=== PATIENT | female | born 1995 | race Caucasian/White ===

== ENCOUNTER 2017-10-27 | Emergency (ER) | payer MEDICAID ==
[~2017-10-27] VITALS: Ht 170.2 cm; Wt 62.5 kg
[~2017-10-27] MED LIST: ANTIVERT 25MG25 MG PO; CLEOCIN HC150 MG/CAP PO; MOTRIN 600600 MG/TAB PO; NO HOME MEDICATIONS; NORCO 325 MG-7.1 TAB PO; PRENATAL1 TA1 PO; PROCARDIA XL 3030 MG PO; TUMS500 MG; TYLENOL 325MG325 MG; ZOLOFT 50MG50 MG PO
[2017-10-27 00:06] VITALS: BP 135/81; TEMP 98.4
[2017-10-27 01:05] LABS: BASO # 0.1 (0.0-0.2); EOS # 0.1 (0.0-0.7); EOS % 1.4 % (0-4.0); GRAN # 4.1 (1.4-6.5); HEMATOCRIT 40.2 % (37.0-47.0); HEMOGLOBIN 13.8 g/dl (12.5-16.0); LYMPH # 3.2 (1.2-3.4); LYMPH % 38.8 % (20.0-51.0); MEAN CELL VOLUME 83 fl (80.0-100.0); MEAN CORPUSCULAR HEMOGLOBIN 28 pg (27.0-31.0); MEAN CORPUSCULAR HGB CONC 34 g/dl (33.0-37.0); MEAN PLATELET VOLUME 10.5 fl (7.4-10.4); MONO # 0.7 (0.1-0.6); MONO % 8.3 % (1.7-9.3); PLATELET COUNT 317 K/mm3 (130-400); RED BLOOD COUNT 4.86 M/mm3 (4.10-5.30); REDCELL DISTRIBUTION WIDTH-CV 13.5 % (11.5-14.5)
[2017-10-27 01:20] LABS: BILIRUBIN,TOTAL 0.3 mg/dL (0.0-1.0); CALCIUM 8.9 mg/dL (8.4-10.2); CREATININE, serum 0.61 mg/dL (0.52-1.25); POTASSIUM 3.3 mmol/L (3.4-5.0)
[2017-10-27 02:38] VITALS: PULSE 89
== END 2017-10-27 02:50 | disposition home or self-care (01) ==
LOC: COL.ER
PROVIDERS: Physician Assistant
DX: O26.891 Other specified pregnancy related conditions, first trimester (principal); R10.2 Pelvic and perineal pain; Z98.890 Other specified postprocedural states

== ENCOUNTER 2017-11-25 22:53 | Emergency (ER) | payer MEDICAID ==
[~2017-11-25] VITALS: Ht 170.2 cm; Wt 61.4 kg
[2017-11-25 22:59] VITALS: BP 115/78; TEMP 98.5
[2017-11-25 23:29] LABS: COLLECTION METHOD CLEAN CATCH
[2017-11-25 23:35] LABS: MUCOUS Present /lpf; PH 6 (5-8); SQUAMOUS EPITHELIAL 0-2 /hpf; URINE APPEARANCE Clear; URINE BACTERIA None Seen /hpf; URINE BILIRUBIN Negative (NEGATIVE); URINE BLOOD Negative (NEGATIVE); URINE COLOR Yellow; URINE GLUCOSE Negative (NEGATIVE); URINE KETONE Negative (NEGATIVE); URINE LEUKOCYTE ESTERASE Negative (NEGATIVE); URINE NITRATE Negative (NEGATIVE); URINE PROTEIN(semi-quant) Negative (NEGATIVE); URINE RBC 0-2 /hpf
[2017-11-26 03:10] VITALS: PULSE 65
== END 2017-11-26 03:10 | disposition home or self-care (01) ==
LOC: COL.ER 22:53
PROVIDERS: Emergency Medicine
DX: O26.891 Other specified pregnancy related conditions, first trimester (principal); M54.5 Low back pain; O99.331 Smoking (tobacco) complicating pregnancy, first trimester; Z79.899 Other long term (current) drug therapy; Z3A.09 9 weeks gestation of pregnancy

== ENCOUNTER 2019-09-18 07:31 | Outpatient (CLI) | payer MEDICAID ==
[2019-09-18 07:52] VITALS: BP 107/76; PULSE 72; TEMP 98.1
[2019-09-18 08:05] LABS: HEMATOCRIT 39.8 % (37.0-47.0); HEMOGLOBIN 13.4 g/dl (12.5-16.0); MEAN CELL VOLUME 86 fl (80.0-100.0); MEAN CORPUSCULAR HEMOGLOBIN 29 pg (27.0-31.0); MEAN CORPUSCULAR HGB CONC 34 g/dl (33.0-37.0); MEAN PLATELET VOLUME 10.4 fl (7.4-10.4); PLATELET COUNT 267 K/mm3 (130-400); RED BLOOD COUNT 4.62 M/mm3 (4.10-5.30); REDCELL DISTRIBUTION WIDTH-CV 13.2 % (11.5-14.5)
[2019-09-18 08:15] LABS: ALBUMIN 3.9 gm/dL (3.5-5.0); BILIRUBIN,TOTAL 0.5 mg/dL (0.0-1.0); CALCIUM 9.1 mg/dL (8.4-10.2); CREATININE, serum 0.6 (0.52-1.25); POTASSIUM 3.7 mmol/L (3.4-5.0); TOTAL PROTEIN 6.7 gm/dL (6.4-8.2)
[2019-09-18] MEDS ORDERED: TOPROL XL 25MG25 MG PO (08:27)
--- NOTE | 2019-09-18 09:53 | NUR ---
PT TOLERATED LOOP INSERTION WELL. SHE VERBALIZES UNDERSTANDING OF DC AND F/U INSTRUCTIONS. INSERTION SITE COVERED WITH CLEAN DRY AND INTACT DRESSING. PT IS AMBULATORY TO EXIT WITH STEADY GAIT.
== END 2019-09-18 10:00 | disposition home or self-care (01) ==
LOC: COL.CAR 07:31
PROVIDERS: Internal Medicine Adult Congenital Heart Disease
DX: R55 Syncope and collapse (principal); Z88.5 Allergy status to narcotic agent; Z91.040 Latex allergy status; Z88.8 Allergy status to other drugs, medicaments and biological substances

== ENCOUNTER 2019-10-12 22:13 | Emergency (ER) | payer MEDICAID ==
[~2019-10-12] VITALS: Ht 170.2 cm; Wt 72.7 kg
[~2019-10-12 22:13] MED LIST changes: +TOPROL XL 25MG25 MG PO
[2019-10-12 22:32] VITALS: BP 117/73; TEMP 98.1
[2019-10-12 23:37] VITALS: PULSE 73
== END 2019-10-12 23:36 | disposition home or self-care (01) ==
LOC: COL.ER 22:13
DX: S90.31XA Contusion of right foot, initial encounter (principal); Z88.5 Allergy status to narcotic agent; W20.8XXA Other cause of strike by thrown, projected or falling object, initial encounter; Y92.59 Other trade areas as the place of occurrence of the external cause

== ENCOUNTER 2019-12-20 02:23 | Emergency (ER) | payer MEDICAID ==
[~2019-12-20] VITALS: Ht 170.2 cm; Wt 71.8 kg
[2019-12-20 03:08] LABS: COLLECTION METHOD CLEAN CATCH
[2019-12-20 03:13] LABS: MUCOUS Present /lpf; PH 6 (5-8); SQUAMOUS EPITHELIAL 0-2 /hpf; URINE APPEARANCE Clear; URINE BACTERIA None Seen /hpf; URINE BILIRUBIN Negative (NEGATIVE); URINE BLOOD Negative (NEGATIVE); URINE COLOR Yellow; URINE GLUCOSE Negative (NEGATIVE); URINE KETONE Negative (NEGATIVE); URINE LEUKOCYTE ESTERASE Negative (NEGATIVE); URINE NITRATE Negative (NEGATIVE); URINE PROTEIN(semi-quant) Negative (NEGATIVE); URINE RBC 0-2 /hpf
[2019-12-20] MEDS ORDERED: FLAGYL500 MG PO (03:36)
[2019-12-20] MEDS ORDERED: DIFLUCAN150 MG PO (03:36)
[2019-12-20 03:57] VITALS: BP 122/70; PULSE 62; TEMP 97.5
[2019-12-20] MEDS ORDERED: ZITHROMAX 250M250 MG PO (05:15)
== END 2019-12-20 03:57 | disposition home or self-care (01) ==
LOC: COL.ER 02:23
PROVIDERS: Emergency Medicine
DX: B37.3 Candidiasis of vulva and vagina (principal); N76.0 Acute vaginitis; B96.89 Other specified bacterial agents as the cause of diseases classified elsewhere; Z32.02 Encounter for pregnancy test, result negative; Z88.5 Allergy status to narcotic agent

== ENCOUNTER 2020-03-18 23:06 | Emergency (ER) | payer MEDICAID ==
[~2020-03-18] VITALS: Ht 170.2 cm; Wt 72.7 kg
[~2020-03-18 23:06] MED LIST changes: +DIFLUCAN150 MG PO; +FLAGYL500 MG PO; +ZITHROMAX 250M250 MG PO
[2020-03-18 23:21] VITALS: BP 139/96; TEMP 98.2
[2020-03-18 23:45] LABS: COLLECTION METHOD CLEAN CATCH
[2020-03-18 23:53] LABS: PH 5 (5-8); SQUAMOUS EPITHELIAL 0-2 /hpf; URINE APPEARANCE Clear; URINE BACTERIA None Seen /hpf; URINE BILIRUBIN Negative (NEGATIVE); URINE BLOOD Negative (NEGATIVE); URINE COLOR Yellow; URINE GLUCOSE Negative (NEGATIVE); URINE KETONE Negative (NEGATIVE); URINE LEUKOCYTE ESTERASE Negative (NEGATIVE); URINE NITRATE Negative (NEGATIVE); URINE PROTEIN(semi-quant) Negative (NEGATIVE); URINE RBC 0-2 /hpf; URINE UROBILINOGEN Negative (NEGATIVE)
[2020-03-19] MEDS ORDERED: DOXYCYCLINE 10100 MG PO (00:21)
[2020-03-19] MEDS ORDERED: DIFLUCAN150 MG PO (00:22)
[2020-03-19 00:29] VITALS: PULSE 97
== END 2020-03-19 00:28 | disposition home or self-care (01) ==
LOC: COL.ER 23:06
PROVIDERS: Emergency Medicine
DX: N89.8 Other specified noninflammatory disorders of vagina (principal); Z32.02 Encounter for pregnancy test, result negative; Z88.5 Allergy status to narcotic agent; Z91.040 Latex allergy status
CPT/HCPCS: J0696

== ENCOUNTER 2020-10-10 16:11 | Emergency (ER) | payer MEDICAID ==
[~2020-10-10] VITALS: Ht 170.2 cm; Wt 68.2 kg
[~2020-10-10 16:11] MED LIST changes: +DOXYCYCLINE 10100 MG PO
[2020-10-10 17:09] VITALS: TEMP 99.2
[2020-10-10 19:26] VITALS: BP 120/76; PULSE 96
== END 2020-10-10 21:05 | disposition home or self-care (01) ==
LOC: COL.ER 16:11
DX: U07.1 COVID-19 (principal); B97.4 Respiratory syncytial virus as the cause of diseases classified elsewhere; B37.3 Candidiasis of vulva and vagina; Z87.891 Personal history of nicotine dependence; Z86.16 Personal history of COVID-19

== ENCOUNTER 2020-10-25 17:52 | Emergency (ER) | payer MEDICAID ==
[~2020-10-25] VITALS: Ht 170.2 cm; Wt 70.5 kg
[2020-10-25 17:57] VITALS: TEMP 97.2
[2020-10-25 20:14] VITALS: BP 118/87; PULSE 74
== END 2020-10-25 20:14 | disposition home or self-care (01) ==
LOC: COL.ER 17:52
DX: S63.501A Unspecified sprain of right wrist, initial encounter (principal); S00.93XA Contusion of unspecified part of head, initial encounter; S10.93XA Contusion of unspecified part of neck, initial encounter; S80.01XA Contusion of right knee, initial encounter; S40.012A Contusion of left shoulder, initial encounter; V03.19XA Pedestrian with other conveyance injured in collision with car, pick-up truck or van in traffic accident, initial encounter; Y92.219 Unspecified school as the place of occurrence of the external cause

== ENCOUNTER 2021-02-22 18:08 | Emergency (ER) | payer MEDICAID ==
[~2021-02-22] VITALS: Ht 170.2 cm; Wt 75.5 kg
[2021-02-22 18:35] VITALS: TEMP 98.1
[2021-02-22 19:08] LABS: COLLECTION METHOD CLEAN CATCH
[2021-02-22 19:13] LABS: BASO # 0.1 K/mm3 (0.0-0.2); BASO % 0.8 % (0.0-2.0); EOS # 0.1 K/mm3 (0.0-0.7); EOS % 1.5 % (0.0-4.0); GRAN # 5.5 K/mm3 (1.4-6.5); GRAN % 57.3 % (42.2-75.2); HEMATOCRIT 42.9 % (37.0-47.0); HEMOGLOBIN 14.6 g/dl (12.5-16.0); LYMPH # 3.3 K/mm3 (1.2-3.4); LYMPH % 34.3 % (20.0-51.0); MEAN CELL VOLUME 86 fl (80.0-100.0); MEAN CORPUSCULAR HEMOGLOBIN 29 pg (27-31); MEAN CORPUSCULAR HGB CONC 34 g/dl (33.0-37.0); MEAN PLATELET VOLUME 10.3 fl (7.4-10.4); MONO # 0.6 K/mm3 (0.1-0.6); MONO % 5.8 % (1.7-9.3); PLATELET COUNT 297 K/mm3 (130-400); RED BLOOD COUNT 4.99 M/mm3 (4.10-5.30); REDCELL DISTRIBUTION WIDTH-CV 12.3 % (11.5-14.5)
[2021-02-22 19:15] LABS: PH 8 (5-8); SQUAMOUS EPITHELIAL 0-2 /hpf (0-10); URINE APPEARANCE Clear (CLEAR/HAZY); URINE BACTERIA None Seen /hpf (NONE SEEN); URINE BILIRUBIN Negative (NEGATIVE); URINE BLOOD Negative (NEGATIVE); URINE COLOR Yellow (YELLOW); URINE GLUCOSE Negative (NEGATIVE); URINE KETONE Negative (NEGATIVE); URINE LEUKOCYTE ESTERASE Negative (NEGATIVE); URINE NITRATE Negative (NEGATIVE); URINE PROTEIN(semi-quant) Negative (NEGATIVE); URINE RBC 0-2 /hpf (0-2); URINE UROBILINOGEN Negative (NEGATIVE)
[2021-02-22 19:31] LABS: ALBUMIN 4.2 gm/dL (3.5-5.0); BILIRUBIN,TOTAL 0.3 mg/dL (0.2-1.2); C-REACTIVE PROTEIN 0.2 mg/dL (0.00-0.50); CALCIUM 9.3 mg/dL (8.4-10.2); CREATININE, serum 0.7 mg/dL (0.57-1.11); POTASSIUM 4.3 mmol/L (3.5-4.5); TOTAL PROTEIN 7.4 gm/dL (6.2-8.1)
[2021-02-22 20:30] VITALS: BP 126/79; PULSE 74
== END 2021-02-22 20:30 | disposition home or self-care (01) ==
LOC: COL.ER 18:08
PROVIDERS: Nurse Practitioner Primary Care
DX: R10.30 Lower abdominal pain, unspecified (principal); Z32.02 Encounter for pregnancy test, result negative
CPT/HCPCS: J1885; J2405; J7030

== ENCOUNTER → 2021-03-09 | Outpatient (CLI) | payer MEDICAID | LOC: COL.RAD 07:44 | DX: R10.11 Right upper quadrant pain (principal); R10.84 Generalized abdominal pain ==

== ENCOUNTER 2021-04-26 15:29 | Emergency (ER) | payer MEDICAID ==
[~2021-04-26] VITALS: Ht 170.2 cm; Wt 77.3 kg
[2021-04-26 16:01] VITALS: TEMP 98.4
[2021-04-26 16:45] LABS: COLLECTION METHOD CLEAN CATCH
[2021-04-26 16:49] LABS: MUCOUS Present (NOT PRESENT); PH 8 (5-8); URINE APPEARANCE Hazy (CLEAR/HAZY); URINE BACTERIA None Seen /hpf (NONE SEEN); URINE BILIRUBIN Negative (NEGATIVE); URINE BLOOD Negative (NEGATIVE); URINE COLOR Yellow (YELLOW); URINE GLUCOSE Negative (NEGATIVE); URINE KETONE Negative (NEGATIVE); URINE LEUKOCYTE ESTERASE Negative (NEGATIVE); URINE NITRATE Negative (NEGATIVE); URINE PROTEIN(semi-quant) Negative (NEGATIVE); URINE RBC 0-2 /hpf (0-2); URINE UROBILINOGEN Negative (NEGATIVE)
[2021-04-26] MEDS ORDERED: PHENERGAN25 MG RC (17:37)
[2021-04-26 17:45] VITALS: BP 113/69; PULSE 66
== END 2021-04-26 17:45 | disposition home or self-care (01) ==
LOC: COL.ER 15:29
PROVIDERS: Nurse Practitioner Primary Care
DX: O21.9 Vomiting of pregnancy, unspecified (principal); Z3A.08 8 weeks gestation of pregnancy
CPT/HCPCS: J2550; J7030

== ENCOUNTER 2021-06-13 18:43 | Emergency (ER) | payer MEDICAID ==
[~2021-06-13] VITALS: Ht 170.2 cm; Wt 76.4 kg
[~2021-06-13 18:43] MED LIST changes: +PHENERGAN25 MG RC
[2021-06-13 19:07] VITALS: BP 110/73; PULSE 109; TEMP 98.7
[2021-07-18] MEDS ORDERED: PROMETHAZINE12.5 M5 PO (08:50)
[2021-07-18] MEDS ORDERED: ZOFRAN 4MG T4 MG/TAB PO (08:51)
[2021-07-18] MEDS ORDERED: ZOFRAN ODT4 MG PO (08:52)
[2021-07-18] MEDS ORDERED: [UNRECOGNIZED DRUG - OTHER] PO (08:53)
== END 2021-06-13 21:00 | disposition left against medical advice (07) ==
LOC: COL.ER 18:43
DX: R53.81 Other malaise (principal)

== ENCOUNTER 2021-06-15 12:08 | Emergency (ER) | payer MEDICAID ==
[~2021-06-15] VITALS: Ht 170.2 cm; Wt 76.4 kg
[2021-06-15 12:13] VITALS: TEMP 100.9
[2021-06-15 13:07] LABS: BASO % 0.3 % (0.0-2.0); EOS % 0.2 % (0.0-4.0); GRAN # 5.5 K/mm3 (1.4-6.5); GRAN % 85.9 % (42.2-75.2); HEMATOCRIT 33.9 % (37.0-47.0); HEMOGLOBIN 11.8 g/dl (12.5-16.0); LYMPH # 0.4 K/mm3 (1.2-3.4); LYMPH % 6.4 % (20.0-51.0); MEAN CELL VOLUME 84 fl (80.0-100.0); MEAN CORPUSCULAR HEMOGLOBIN 29 pg (27-31); MEAN CORPUSCULAR HGB CONC 35 g/dl (33.0-37.0); MEAN PLATELET VOLUME 10.5 fl (7.4-10.4); MONO # 0.4 K/mm3 (0.1-0.6); MONO % 6.9 % (1.7-9.3); PLATELET COUNT 210 K/mm3 (130-400); RED BLOOD COUNT 4.06 M/mm3 (4.10-5.30); REDCELL DISTRIBUTION WIDTH-CV 12.8 % (11.5-14.5)
[2021-06-15 13:16] LABS: MONOSCREEN NEGATIVE
[2021-06-15 13:23] LABS: BILIRUBIN,TOTAL 0.3 mg/dL (0.2-1.2); C-REACTIVE PROTEIN 2.71 mg/dL (0.00-0.50); CALCIUM 8.3 mg/dL (8.4-10.2); CREATININE, serum 0.57 mg/dL (0.57-1.11); POTASSIUM 3.2 mmol/L (3.5-4.5); TOTAL PROTEIN 6.1 gm/dL (6.2-8.1)
[2021-06-15 14:26] LABS: COLLECTION METHOD CLEAN CATCH
[2021-06-15 14:33] LABS: MUCOUS Present (NOT PRESENT); PH 6 (5-8); SQUAMOUS EPITHELIAL 0-2 /hpf (0-10); URINE APPEARANCE Clear (CLEAR/HAZY); URINE BACTERIA Rare /hpf (NONE SEEN); URINE BILIRUBIN Negative (NEGATIVE); URINE BLOOD Negative (NEGATIVE); URINE COLOR Yellow (YELLOW); URINE GLUCOSE Negative (NEGATIVE); URINE KETONE 2+ (NEGATIVE); URINE LEUKOCYTE ESTERASE Negative (NEGATIVE); URINE NITRATE Negative (NEGATIVE); URINE PROTEIN(semi-quant) Negative (NEGATIVE); URINE RBC None Seen /hpf (0-2); URINE UROBILINOGEN Negative (NEGATIVE)
[2021-06-15 15:32] VITALS: BP 102/64; PULSE 107
== END 2021-06-15 15:39 | disposition home or self-care (01) ==
LOC: COL.ER 12:08
PROVIDERS: Physician Assistant
DX: O98.512 Other viral diseases complicating pregnancy, second trimester (principal); Z3A.15 15 weeks gestation of pregnancy; Z88.6 Allergy status to analgesic agent; Z91.040 Latex allergy status
CPT/HCPCS: J7030

== ENCOUNTER 2021-06-29 21:03 | Emergency (ER) | payer MEDICAID ==
[~2021-06-29] VITALS: Ht 170.2 cm; Wt 74.5 kg
[2021-06-29 23:11] VITALS: BP 113/73; PULSE 71; TEMP 98.5
[2021-07-18] MEDS ORDERED: PROMETHAZINE12.5 M5 PO (08:50)
[2021-07-18] MEDS ORDERED: ZOFRAN 4MG T4 MG/TAB PO (08:51)
[2021-07-18] MEDS ORDERED: ZOFRAN ODT4 MG PO (08:52)
[2021-07-18] MEDS ORDERED: [UNRECOGNIZED DRUG - OTHER] PO (08:53)
== END 2021-06-29 23:11 | disposition home or self-care (01) ==
LOC: COL.ER 21:03
DX: O21.9 Vomiting of pregnancy, unspecified (principal); Z87.891 Personal history of nicotine dependence; Z28.310 Unvaccinated for COVID-19; Z3A.17 17 weeks gestation of pregnancy; Z91.040 Latex allergy status
CPT/HCPCS: J2550; J7030

== ENCOUNTER 2021-07-04 22:49 | Emergency (ER) | payer MEDICAID ==
[~2021-07-04] VITALS: Ht 170.2 cm; Wt 70.5 kg
[2021-07-04 22:56] VITALS: TEMP 98.4
[2021-07-05 00:27] LABS: COLLECTION METHOD CLEAN CATCH
[2021-07-05 00:32] LABS: MUCOUS Present (NOT PRESENT); PH 6 (5-8); SQUAMOUS EPITHELIAL 0-2 /hpf (0-10); URINE APPEARANCE Clear (CLEAR/HAZY); URINE BACTERIA None Seen /hpf (NONE SEEN); URINE BILIRUBIN Negative (NEGATIVE); URINE BLOOD Negative (NEGATIVE); URINE COLOR Yellow (YELLOW); URINE GLUCOSE Negative (NEGATIVE); URINE KETONE Trace (NEGATIVE); URINE LEUKOCYTE ESTERASE Negative (NEGATIVE); URINE NITRATE Negative (NEGATIVE); URINE PROTEIN(semi-quant) Negative (NEGATIVE); URINE RBC 0-2 /hpf (0-2)
[2021-07-05 00:37] LABS: BASO # 0.1 K/mm3 (0.0-0.2); BASO % 0.3 % (0.0-2.0); EOS # 0.2 K/mm3 (0.0-0.7); EOS % 1.6 % (0.0-4.0); GRAN # 10.9 K/mm3 (1.4-6.5); GRAN % 75.2 % (42.2-75.2); HEMOGLOBIN 12.2 g/dl (12.5-16.0); LYMPH # 2.5 K/mm3 (1.2-3.4); LYMPH % 17.4 % (20.0-51.0); MEAN CELL VOLUME 86 fl (80.0-100.0); MEAN CORPUSCULAR HEMOGLOBIN 30 pg (27-31); MEAN CORPUSCULAR HGB CONC 35 g/dl (33.0-37.0); MEAN PLATELET VOLUME 10.7 fl (7.4-10.4); MONO # 0.7 K/mm3 (0.1-0.6); MONO % 4.9 % (1.7-9.3); PLATELET COUNT 262 K/mm3 (130-400); RED BLOOD COUNT 4.09 M/mm3 (4.10-5.30); REDCELL DISTRIBUTION WIDTH-CV 13.2 % (11.5-14.5)
[2021-07-05 00:46] LABS: ALBUMIN 3.1 gm/dL (3.5-5.0); BILIRUBIN,TOTAL 0.3 mg/dL (0.2-1.2); CALCIUM 8.8 mg/dL (8.4-10.2); CREATININE, serum 0.54 mg/dL (0.57-1.11); POTASSIUM 3.6 mmol/L (3.5-4.5); TOTAL PROTEIN 6.3 gm/dL (6.2-8.1)
[2021-07-05 01:30] VITALS: BP 123/80; PULSE 92
[2021-07-18] MEDS ORDERED: PROMETHAZINE12.5 M5 PO (08:50)
[2021-07-18] MEDS ORDERED: ZOFRAN 4MG T4 MG/TAB PO (08:51)
[2021-07-18] MEDS ORDERED: ZOFRAN ODT4 MG PO (08:52)
[2021-07-18] MEDS ORDERED: [UNRECOGNIZED DRUG - OTHER] PO (08:53)
== END 2021-07-05 01:40 | disposition home or self-care (01) ==
LOC: COL.ER 22:49
PROVIDERS: Physician Assistant
DX: O21.9 Vomiting of pregnancy, unspecified (principal); Z3A.18 18 weeks gestation of pregnancy; Z91.040 Latex allergy status; Z28.310 Unvaccinated for COVID-19
CPT/HCPCS: J2765; J7030

== ENCOUNTER 2021-07-12 20:24 | Emergency (ER) | payer MEDICAID ==
[~2021-07-12] VITALS: Ht 170.2 cm; Wt 76.4 kg
[2021-07-12 20:36] VITALS: TEMP 98.7
[2021-07-12 23:25] VITALS: BP 130/84; PULSE 88
[2021-07-18] MEDS ORDERED: PROMETHAZINE12.5 M5 PO (08:50)
[2021-07-18] MEDS ORDERED: ZOFRAN 4MG T4 MG/TAB PO (08:51)
[2021-07-18] MEDS ORDERED: ZOFRAN ODT4 MG PO (08:52)
[2021-07-18] MEDS ORDERED: [UNRECOGNIZED DRUG - OTHER] PO (08:53)
== END 2021-07-12 23:25 | disposition home or self-care (01) ==
LOC: COL.ER 20:24
DX: O21.9 Vomiting of pregnancy, unspecified (principal); Z3A.19 19 weeks gestation of pregnancy; Z91.040 Latex allergy status; Z28.310 Unvaccinated for COVID-19
CPT/HCPCS: J2550; J7030

== ENCOUNTER 2021-07-23 08:18 | Emergency (ER) | payer MEDICAID ==
[~2021-07-23] VITALS: Ht 154.9 cm; Wt 74.1 kg
[~2021-07-23 08:18] MED LIST changes: +PROMETHAZINE12.5 M5 PO; +ZOFRAN 4MG T4 MG/TAB PO; +ZOFRAN ODT4 MG PO; +[UNRECOGNIZED DRUG - OTHER] PO
[2021-07-23 08:27] VITALS: TEMP 98
[2021-07-23 11:31] VITALS: BP 107/69; PULSE 81
[2021-07-26] MEDS ORDERED: BENADRYL25 M2 PO (10:24)
== END 2021-07-23 11:31 | disposition home or self-care (01) ==
LOC: COL.ER 08:18
DX: R11.10 Vomiting, unspecified (principal); Z95.9 Presence of cardiac and vascular implant and graft, unspecified; Z91.040 Latex allergy status; Z87.891 Personal history of nicotine dependence; Z28.310 Unvaccinated for COVID-19
CPT/HCPCS: J2550; J7120

== ENCOUNTER → 2021-07-26 | Outpatient (RCR) | payer MEDICAID ==
[2021-07-14 15:48] VITALS: BP 116/75; PULSE 94; TEMP 97.9
[2021-07-18 09:06] VITALS: BP 116/73; PULSE 88; TEMP 97.9
--- NOTE | 2021-07-18 10:15 | NUR ---
Pt tolerated IVF without complication, IV removed, pt ambulated out of EU. Pt has new appt.
[2021-07-21 10:34] VITALS: BP 111/73; PULSE 76; TEMP 98.1
[2021-07-22 10:40] VITALS: BP 111/79; PULSE 92; TEMP 98
[~2021-07-26] VITALS: Ht 170.2 cm; Wt 78.0 kg
[~2021-07-26] MED LIST changes: +BENADRYL25 M2 PO
[2021-07-26 11:03] VITALS: BP 120/83; PULSE 92; TEMP 97.6
--- NOTE | 2021-07-26 12:30 | NUR ---
Pt tolerated treatment well today, pt drank sprite without nausea. pt ambulated out of EU. Appt made for next visit.
== END | disposition home or self-care (01) ==
LOC: EUO
DX: Z45.2 Encounter for adjustment and management of vascular access device (principal); O21.0 Mild hyperemesis gravidarum; Z79.899 Other long term (current) drug therapy
CPT/HCPCS: C1751; J2550; J7120

== ENCOUNTER 2021-07-30 21:41 | Outpatient (CLI) | payer MEDICAID ==
[~2021-07-30] VITALS: Ht 170.2 cm; Wt 77.3 kg
--- NOTE | 2021-07-30 21:45 | NUR ---
2145 G6L4 20.5 WEEK GEST TO LR4 WITH C/O HYPEREMESIS AND UNABLE TO KEEP ANYTHING DOWN ALL DAY. STATES HAD A PICC LINE PUT IN LAST SUNDAY AND HAS BEEN COMING TO THE HOSPITAL 2 TIMES A WEEK FOR IV FLUIDS. WAS HERE LAST ON SUNDAY. HAS TAKEN ZOFRAN TODAY WITH NO RESULTS. STATES ALSO HAS HAD SOME PELVIC/PAIN PRESSURE FOR THE LAST FEW DAYS. ALSO STATES HAS A PLACENTA PREVIA. ON EFM FOR A 10 MINUTE STRIP OF BABY. FHT'S BASELINE 152. NO CONTRACTIONS NOTED. EMESIS ON ADM BUT PLEASANT AND VISITING NOW. ASSESSMENT COMPLETED. 2235 DR POTTS NOTIFIED AND ORDERS RECEIVED. 2250 CCUA OBTAINED AND LABS OBTAINED FROM PICC LINE. 2300 D5LR TO PICC LINE PER IV PUMP TO BOLUS. 2320 PHENERGAN 25 MG IN 50 CC NS IVPB PER IV PUMP. 0000 FEELING MUCH BETTER. POPSICLE TAKEN. 0010 DR POTTS NOTIFIED OF LAB RESULTS AND PT FEELING BETTER. 2330 IV FLUIDS INFUSED AND DISCONNECTED. DISMISS INSTRUCTION GIVEN. 2335 HOME WITH INSTRUCTIONS.
[2021-07-30 22:00] VITALS: BP 139/82; PULSE 90; TEMP 98.5
[2021-07-30 22:59] LABS: COLLECTION METHOD CLEAN CATCH
[2021-07-30 23:01] LABS: HEMOGLOBIN 11.1 g/dl (12.5-16.0); MEAN CELL VOLUME 85 fl (80.0-100.0); MEAN CORPUSCULAR HEMOGLOBIN 30 pg (27-31); MEAN CORPUSCULAR HGB CONC 35 g/dl (33.0-37.0); MEAN PLATELET VOLUME 10.6 fl (7.4-10.4); PLATELET COUNT 233 K/mm3 (130-400); RED BLOOD COUNT 3.76 M/mm3 (4.10-5.30); REDCELL DISTRIBUTION WIDTH-CV 13.3 % (11.5-14.5)
[2021-07-30 23:03] LABS: HEMATOCRIT 31.9 % (37.0-47.0)
[2021-07-30 23:06] LABS: MUCOUS Present (NOT PRESENT); PH 6 (5-8); URINE APPEARANCE Hazy (CLEAR/HAZY); URINE BACTERIA None Seen /hpf (NONE SEEN); URINE BILIRUBIN Negative (NEGATIVE); URINE BLOOD Negative (NEGATIVE); URINE COLOR Yellow (YELLOW); URINE GLUCOSE Negative (NEGATIVE); URINE KETONE Negative (NEGATIVE); URINE LEUKOCYTE ESTERASE Negative (NEGATIVE); URINE NITRATE Negative (NEGATIVE); URINE PROTEIN(semi-quant) Negative (NEGATIVE); URINE RBC 0-2 /hpf (0-2); URINE UROBILINOGEN Negative (NEGATIVE); URINE WBC 0-2 /hpf (0-2)
[2021-07-30 23:20] VITALS: BP 109/64; PULSE 74
[2021-07-30 23:23] LABS: ALBUMIN 2.7 gm/dL (3.5-5.0); BILIRUBIN,TOTAL 0.3 mg/dL (0.2-1.2); CALCIUM 9.1 mg/dL (8.4-10.2); CREATININE, serum 0.47 mg/dL (0.57-1.11); POTASSIUM 3.5 mmol/L (3.5-4.5); TOTAL PROTEIN 6.2 gm/dL (6.2-8.1)
== END 2021-07-31 00:35 | disposition home or self-care (01) ==
LOC: LDR 21:41 → LDRO 21:41
PROVIDERS: Obstetrics & Gynecology
DX: O21.0 Mild hyperemesis gravidarum (principal); Z3A.20 20 weeks gestation of pregnancy
CPT/HCPCS: OP; J2550; J7121

== ENCOUNTER 2021-08-13 14:59 | Outpatient (CLI) | payer MEDICAID ==
[~2021-08-13] VITALS: Ht 170.2 cm; Wt 79.5 kg
--- NOTE | 2021-08-13 15:05 | NUR ---
1505- Pt arrives on unit via wheelchair. Complains of cramping and vaginal pressure. Pt has dx of hyperemesis gravidarum, coreen has PICC line and is receiving LR and Phenergan infusion biweekly. Pt states she has thrown up 8 times today. Assessments completed. Pt has significant history of deliveries via C/S x3, see records. 1538- FHR dopplar 155-160, movement heard and felt by this RN. Pt complains of sharp pain with movement.
[2021-08-13 15:30] VITALS: BP 125/84; PULSE 106; TEMP 98.5
[2021-08-13 16:00] VITALS: BP 108/70; PULSE 92
[2021-08-13 16:30] VITALS: BP 123/82; PULSE 100
--- NOTE | 2021-08-13 16:30 | NUR ---
1622- Pt given marker button, instructed to press when feeling cramping, understanding verbalized. Tested by this RN.
[2021-08-13 17:00] VITALS: BP 113/76; PULSE 96
[2021-08-13 17:03] LABS: COLLECTION METHOD CLEAN CATCH
[2021-08-13 17:08] LABS: PH 7 (5-8); SQUAMOUS EPITHELIAL 0-2 /hpf (0-10); URINE APPEARANCE Clear (CLEAR/HAZY); URINE BACTERIA Rare /hpf (NONE SEEN); URINE BILIRUBIN Negative (NEGATIVE); URINE BLOOD 1+ (NEGATIVE); URINE COLOR Straw (YELLOW); URINE GLUCOSE Negative (NEGATIVE); URINE KETONE Negative (NEGATIVE); URINE LEUKOCYTE ESTERASE Negative (NEGATIVE); URINE NITRATE Negative (NEGATIVE); URINE PROTEIN(semi-quant) Negative (NEGATIVE); URINE UROBILINOGEN Negative (NEGATIVE)
[2021-08-13 17:30] VITALS: BP 112/68; PULSE 83
[2021-08-13 18:00] VITALS: BP 115/66; PULSE 85
--- NOTE | 2021-08-13 18:18 | NUR ---
180- FHR dopplar 155-160bpm. Pt states cramping has spaced out significantly after IVF. 181- TOCO off. PICC line flushed with NS. Discharge paperwork given and explained. 1817- Pt ambulates off unit in stable condition.
== END 2021-08-13 18:18 | disposition home or self-care (01) ==
LOC: LDRO 14:59 → LDR 15:05 → LDRO 18:18
PROVIDERS: Obstetrics & Gynecology
DX: O62.9 Abnormality of forces of labor, unspecified (principal); Z3A.28 28 weeks gestation of pregnancy
CPT/HCPCS: OP; J2550; J7120

== ENCOUNTER → 2021-08-25 | Outpatient (RCR) | payer MEDICAID ==
[2021-07-28 10:58] VITALS: BP 111/73; PULSE 79
[2021-07-28 11:28] VITALS: BP 111/69; PULSE 72; TEMP 97.9
[2021-08-01 10:31] VITALS: BP 113/73; PULSE 77; TEMP 97.9
--- NOTE | 2021-08-01 12:13 | NUR ---
PT TOLERATED TREATMENT WITHOUT COMPLICATION. PT ABLE TO DRINK SPRITE AND REPORTS NO NAUSEA AT THIS TIME. PT HAS APPT FOR AUGUST 04.
[2021-08-04 10:23] VITALS: BP 126/89; PULSE 90; TEMP 98.4
[2021-08-08 09:51] VITALS: BP 124/80; PULSE 71; TEMP 98.3
[2021-08-11 10:28] VITALS: BP 114/78; PULSE 89; TEMP 98.5
[2021-08-15 10:22] VITALS: BP 111/72; PULSE 94; TEMP 98.5
[2021-08-18 10:15] VITALS: BP 108/70; PULSE 84; TEMP 98.5
[2021-08-18 12:00] VITALS: BP 111/68; PULSE 72; TEMP 98.2
[2021-08-22 10:13] VITALS: BP 114/81; PULSE 98; TEMP 98.4
[~2021-08-25] VITALS: Ht 170.2 cm; Wt 79.2 kg
[~2021-08-25] MED LIST changes: +ASPIRIN E.C. 8181 MG PO
[2021-08-25 10:07] VITALS: BP 118/75; PULSE 88; TEMP 98.2
== END | disposition still patient (30) ==
LOC: EUO
DX: O21.0 Mild hyperemesis gravidarum (principal)
CPT/HCPCS: J2550; J7120

== ENCOUNTER 2021-09-10 17:08 | Emergency (ER) | payer MEDICAID ==
[~2021-09-10] VITALS: Ht 170.2 cm; Wt 79.5 kg
[2021-09-10 17:15] VITALS: TEMP 97.6
--- NOTE | 2021-09-10 17:28 | NUR ---
1728 - PATIENT REPORTS NO LEAKING OF FLUID OR BLOODY SHOW. PATIENT REPORTS INTERMITTENT CONTRACTIONS. PATIENT CAME TO ED FOR EXCESSIVE VOMITING X 2DAYS. PATIENT REPORTS GOOD MOVEMENT. 1730 - PATIENT PLACED ON EFM FOR MONITORING. CARE ONGOING.
[2021-09-10 18:38] VITALS: BP 125/72; PULSE 89
== END 2021-09-10 18:38 | disposition home or self-care (01) ==
LOC: COL.ER 17:08
DX: O21.0 Mild hyperemesis gravidarum (principal); Z91.040 Latex allergy status; Z3A.27 27 weeks gestation of pregnancy; Z28.310 Unvaccinated for COVID-19
CPT/HCPCS: J2550; J7030

== ENCOUNTER 2021-09-13 23:23 | Outpatient (CLI) | payer MEDICAID ==
[~2021-09-13] VITALS: Ht 170.2 cm; Wt 80.0 kg
--- NOTE | 2021-09-13 23:35 | NUR ---
To unit via wheelchair, accompanied by spouse and 2 small children. orineted to room,monitor, plan of care. Informed pt and spouse that children could not be on Labor and Delivery unit, that would have to take them out. pt states "that's what we thought" assists pt to bathroom. Pt reports "I'm really dizzy and nauseated" Assisted to bed by . Placed on monitor. takes children home.
[2021-09-13 23:40] VITALS: BP 138/84; PULSE 95; TEMP 98.7
[2021-09-14 00:25] VITALS: BP 125/71; PULSE 96
--- NOTE | 2021-09-14 00:40 | NUR ---
Pt with PICC line to R upper forearm. Flushes easily, labs obtained. flushed. 0050 LR started to R PICC line site, running @ 600mls/hr, 12.5 mg phenergan to secondary IV pump port to infuse over 20 min concurretnly with LR.
[2021-09-14 00:51] LABS: BASO # 0.1 K/mm3 (0.0-0.2); BASO % 0.4 % (0.0-2.0); EOS # 0.1 K/mm3 (0.0-0.7); EOS % 1.1 % (0.0-4.0); GRAN # 8.2 K/mm3 (1.4-6.5); LYMPH % 17.8 % (20.0-51.0); MEAN CELL VOLUME 84 fl (80.0-100.0); MEAN CORPUSCULAR HGB CONC 34 g/dl (33.0-37.0); MEAN PLATELET VOLUME 10.3 fl (7.4-10.4); MONO # 0.8 K/mm3 (0.1-0.6); MONO % 7.2 % (1.7-9.3); PLATELET COUNT 236 K/mm3 (130-400); RED BLOOD COUNT 3.39 M/mm3 (4.10-5.30); REDCELL DISTRIBUTION WIDTH-CV 13.2 % (11.5-14.5)
[2021-09-14 00:53] LABS: HEMATOCRIT 28.6 % (37.0-47.0); HEMOGLOBIN 9.6 g/dl (12.5-16.0); MEAN CORPUSCULAR HEMOGLOBIN 28 pg (27-31)
[2021-09-14 01:00] VITALS: BP 111/63; PULSE 94; TEMP 98
[2021-09-14 01:09] LABS: ALBUMIN 2.5 gm/dL (3.5-5.0); BILIRUBIN,TOTAL 0.3 mg/dL (0.2-1.2); CALCIUM 8.8 mg/dL (8.4-10.2); CREATININE, serum 0.48 mg/dL (0.57-1.11); POTASSIUM 3.6 mmol/L (3.5-4.5); TOTAL PROTEIN 5.9 gm/dL (6.2-8.1)
[2021-09-14 01:30] VITALS: BP 127/79; PULSE 81
[2021-09-14 02:00] VITALS: BP 115/71; PULSE 81
[2021-09-14 02:30] VITALS: BP 116/59; PULSE 80
--- NOTE | 2021-09-14 02:30 | NUR ---
LR bolus complete. Pt states "I feel so much better. Thanks. I'm ready to go home." IV fluids dc'd, PICC line flushes easily. 0238 Up to bathroom with steady gait.
--- NOTE | 2021-09-14 03:00 | NUR ---
Discharge instructions reviewed with pt. Questions invited and answered. off unit via wheelchair, waiting with car at ER entrance.
== END 2021-09-14 03:00 | disposition home or self-care (01) ==
LOC: LDRO 23:23 → LDR 09-14 00:05 → LDRO 09-14 03:00
PROVIDERS: Student in an Organized Health Care Education/Training Program
DX: O26.893 Other specified pregnancy related conditions, third trimester (principal); R11.0 Nausea; R42 Dizziness and giddiness; Z3A.28 28 weeks gestation of pregnancy
CPT/HCPCS: OP; J2550; J7120

== ENCOUNTER 2021-09-22 00:30 | Emergency (ER) | payer MEDICAID ==
[~2021-09-22] VITALS: Ht 170.2 cm; Wt 80.0 kg
[2021-09-22 00:34] VITALS: TEMP 97.4
[2021-09-22] MEDS ORDERED: DULCOLAX STOOL100 MG PO (01:47)
[2021-09-22 02:10] VITALS: BP 132/78; PULSE 70
== END 2021-09-22 02:10 | disposition home or self-care (01) ==
LOC: COL.ER 00:30
DX: O22.40 Hemorrhoids in pregnancy, unspecified trimester (principal); O99.619 Diseases of the digestive system complicating pregnancy, unspecified trimester; K59.00 Constipation, unspecified; Z91.040 Latex allergy status; Z3A.00 Weeks of gestation of pregnancy not specified; Z28.310 Unvaccinated for COVID-19
CPT/HCPCS: J2405

== ENCOUNTER 2021-09-23 10:00 | Outpatient (RCR) | payer MEDICAID ==
[2021-08-30 10:22] VITALS: BP 100/67; PULSE 81; TEMP 98.9
[2021-09-01 10:10] VITALS: BP 103/67; PULSE 88; TEMP 98.1
[2021-09-05 09:57] VITALS: BP 121/80; PULSE 90; TEMP 98.3
--- NOTE | 2021-09-05 11:15 | NUR ---
Pt ambulates out from dept with steady gait following fluid administration. Nausea well controlled. PICC wrap in place to rt upper arm.
[2021-09-08 10:25] VITALS: BP 117/82; PULSE 107; TEMP 98.5
[2021-09-12 10:20] VITALS: BP 120/80; PULSE 83; TEMP 97
[2021-09-14 15:39] VITALS: BP 116/71; PULSE 106; TEMP 98.6
[2021-09-16 10:18] VITALS: BP 114/74; PULSE 106; TEMP 98.3
[2021-09-19 11:02] VITALS: BP 107/73; PULSE 89; TEMP 98.5
[2021-09-21 10:12] VITALS: BP 108/66; PULSE 95; TEMP 98.3
[~2021-09-23] VITALS: Ht 170.2 cm; Wt 80.3 kg
[~2021-09-23 10:00] MED LIST changes: +DULCOLAX STOOL100 MG PO
[2021-09-23 10:19] VITALS: BP 129/86; PULSE 85; TEMP 98.3
[2021-09-23 10:47] VITALS: BP 136/86; PULSE 85; TEMP 97.8
--- NOTE | 2021-09-23 12:36 | NUR ---
Pt discharged from Eu with observed steady gait,denies further needs.
--- NOTE | 2021-09-26 11:10 | NUR ---
Pt did not show for today's scheduled apt.This nurse called pt and per pt she is in hospital in [place].
== END 2021-09-25 | disposition home or self-care (01) ==
LOC: EUO
DX: O21.0 Mild hyperemesis gravidarum (principal); Z3A.00 Weeks of gestation of pregnancy not specified
CPT/HCPCS: J2550; J3411; J7030; J7120

== ENCOUNTER 2021-09-24 21:25 | Outpatient (CLI) | payer MEDICAID ==
[2021-09-24] VITALS (9 sets, daily range): BP systolic 113–127; BP diastolic 66–79; PULSE 71–108; TEMP 98
[~2021-09-24] VITALS: Ht 170.2 cm; Wt 79.5 kg
--- NOTE | 2021-09-24 22:30 | NUR ---
PATIENT PRESENTS TO OB TRIAGE COMPLAINING OF VAGINAL BLEEDING AND CRAMPING. VSS. FHT REACTIVE AND REASSURING WITH UTERINE IRRITABILITY NOTED THAT PALPATES MODERATE. NO VISIBLE BLEEDING NOTED AT THIS TIME. PATIENT STATES SHE HAS BEEN VOMITING ALL DAY AND HAS NOT BEEN ABLE TO EAT SINCE SUNDAY. AT 2029 PATIENT SAYS SHE STARTED CRAMPING AND THEN NOTED VAGINAL BLEEDING AT 2130 WHEN USING THE BATHROOM. PATIENT DENIES LOF AND DFM AT THIS TIME. DR. CONNORS NOTIFIED OF PATIENT STATUS AND ORDERS RECEIVED FOR LAB WORK, IVF, BETAMETHASONE 12MG INJECTION. AND 25MG IV PHENERGAN. MONITORING TO BE PERFORMED OVER NIGHT. WILL CONTINUE TO MONITOR AND UPDATE PROVIDER ON PATIENT STATUS.
[2021-09-24 22:52] LABS: BASO % 0.4 % (0.0-2.0); EOS # 0.1 K/mm3 (0.0-0.7); GRAN % 73.1 % (42.2-75.2); LYMPH # 1.8 K/mm3 (1.2-3.4); LYMPH % 18.3 % (20.0-51.0); MEAN CELL VOLUME 82 fl (80.0-100.0); MEAN CORPUSCULAR HGB CONC 34 g/dl (33.0-37.0); MEAN PLATELET VOLUME 10.7 fl (7.4-10.4); MONO # 0.7 K/mm3 (0.1-0.6); MONO % 6.7 % (1.7-9.3); PLATELET COUNT 233 K/mm3 (130-400); RED BLOOD COUNT 3.39 M/mm3 (4.10-5.30); REDCELL DISTRIBUTION WIDTH-CV 13.1 % (11.5-14.5)
[2021-09-24 22:54] LABS: HEMATOCRIT 27.8 % (37.0-47.0); HEMOGLOBIN 9.4 g/dl (12.5-16.0); MEAN CORPUSCULAR HEMOGLOBIN 28 pg (27-31)
[2021-09-24 23:12] LABS: ALBUMIN 2.5 gm/dL (3.5-5.0); BILIRUBIN,TOTAL 0.3 mg/dL (0.2-1.2); CALCIUM 8.9 mg/dL (8.4-10.2); CREATININE, serum 0.47 mg/dL (0.57-1.11)
[2021-09-24 23:49] LABS: COLLECTION METHOD CLEAN CATCH
[2021-09-24 23:55] LABS: MUCOUS Present (NOT PRESENT); PH 8 (5-8); SQUAMOUS EPITHELIAL 0-2 /hpf (0-10); URINE APPEARANCE Clear (CLEAR/HAZY); URINE BACTERIA None Seen /hpf (NONE SEEN); URINE BLOOD Negative (NEGATIVE); URINE COLOR Straw (YELLOW); URINE GLUCOSE Negative (NEGATIVE); URINE KETONE Negative (NEGATIVE); URINE NITRATE Negative (NEGATIVE); URINE PROTEIN(semi-quant) Negative (NEGATIVE); URINE RBC 0-2 /hpf (0-2); URINE UROBILINOGEN Negative (NEGATIVE); URINE WBC 0-2 /hpf (0-2)
[2021-09-25] VITALS (7 sets, daily range): BP systolic 109–126; BP diastolic 55–69; PULSE 67–96; TEMP 97.9–98.2
--- NOTE | 2021-09-25 09:30 | NUR ---
0900 IVF FINISHED. PICC LINE FLUSHED WITH 10 CC NS. WRAPPED WITH SAROJ WRAP PER PATIENT. DR POTTS AT BEDSIDE TO TALK WITH PATIENT AND DISCUSS OPTIONS. ALL DISCHARGE INSTRUCTIONS GIVEN TO PATIENT WITH VERBAL UNDERSTANDING. OFFERD TO GET PATIENT SOMWTHING TO EAT BUT PATIENT DENIES. INSTRUCT PATIENT TO RETURN TONIGHT AROUND 10-11 PM FOR 2ND BETAMETHASONE SHOT. VERBAL UNDERSTANDING.
== END 2021-09-25 09:30 | disposition home or self-care (01) ==
LOC: LDRO 21:25
PROVIDERS: Obstetrics & Gynecology
DX: O62.9 Abnormality of forces of labor, unspecified (principal); Z3A.00 Weeks of gestation of pregnancy not specified
CPT/HCPCS: J0702; J2550; J3480; J7030; J7120

== ENCOUNTER 2021-09-25 22:00 | Outpatient (CLI) | payer MEDICAID ==
[~2021-09-25] VITALS: Ht 170.2 cm; Wt 79.5 kg
--- NOTE | 2021-09-25 22:00 | NUR ---
PATIENT REPORTS TO OBT FROM SECOND DOSE OF BETAMETHASONE, IVF BOLUS, AND IV PHENERGAN. VSS. FHT REACTIVE AND REASSURING WITH IRREGULAR CONTRACTIONS NOTED THAT PALPATE MILD. PATIENT STATES THAT CRAMPING BEGAN AROUND 1400 AND SHORTLY BEFORE ARRIVING ON THE UNIT SHE NOTICED "MUCUSY BLEEDING" WHEN USING THE BATHROOM. NO BLEEDING NOTED AT THIS TIME. DR. POTTS NOTIFIED OF ARRIVAL AND ORDERS RECEIVED TO ADMINISTER MEDICATIONS AND MONITOR BABY AND CRAMPING. PLAN DISCUSSED WITH PATIENT AND VERBALIZED UNDERSTANDING.
[2021-09-25 22:15] VITALS: BP 124/80; PULSE 109; TEMP 98.4
[2021-09-25 22:30] VITALS: BP 114/67; PULSE 96
[2021-09-25 22:45] VITALS: BP 121/70; PULSE 100
[2021-09-25 23:00] VITALS: BP 134/88; PULSE 103
[2021-09-25 23:15] VITALS: BP 126/67; PULSE 103
[2021-09-25 23:45] VITALS: BP 118/61; PULSE 92
--- NOTE | 2021-09-25 23:47 | NUR ---
AT 2347 PATIENT UP TO BATHROOM AND CALLED OUT FOR BRIGHT RED BLEEDING WHEN WIPING. TRICKLING ALSO NOTED INTO THE TOILET UPON STANDING UP. PATIENT RETURNED TO BED AND PLACED BACK ON MONITOR; HEART TRACING REACTIVE AND VSS. DR. POTTS NOTIFIED AND WILL REPORT TO THE BEDSIDE.
[2021-09-26 00:30] VITALS: BP 124/68; PULSE 87
--- NOTE | 2021-09-26 00:30 | NUR ---
0020 - DR. POTTS AT BEDSIDE TO ASSESS PATIENT AND PERFORM SVE; SVE . DISCUSSED POSSIBLE PLAN OF CARE WITH PATIENT AND PATIENT AGREES TO TRANSFER TO [place]. 0030 - ORDERS RECEIVED TO START AMPICILLIN, MAGNESIUM SULFATE, IV FLUIDS. START SECOND PIV AND PINA CATHETER, AND SEND LAB WORK. 0040 - MOLD UNLOADER NOTIFIED OF PATIENT TRANSFER.
[2021-09-26 01:00] VITALS: BP 127/88; PULSE 90
[2021-09-26 01:25] LABS: MEAN CELL VOLUME 83 fl (80.0-100.0); MEAN CORPUSCULAR HGB CONC 33 g/dl (33.0-37.0); MEAN PLATELET VOLUME 10.6 fl (7.4-10.4); PLATELET COUNT 223 K/mm3 (130-400); RED BLOOD COUNT 3.27 M/mm3 (4.10-5.30); REDCELL DISTRIBUTION WIDTH-CV 13.1 % (11.5-14.5)
[2021-09-26 01:26] LABS: HEMOGLOBIN 8.9 g/dl (12.5-16.0); MEAN CORPUSCULAR HEMOGLOBIN 27 pg (27-31)
[2021-09-26 01:30] VITALS: BP 127/73; PULSE 88
[2021-09-26 01:43] LABS: ALBUMIN 2.5 gm/dL (3.5-5.0); BILIRUBIN,TOTAL 0.2 mg/dL (0.2-1.2); CALCIUM 8.8 mg/dL (8.4-10.2); CREATININE, serum 0.46 mg/dL (0.57-1.11); POTASSIUM 3.3 mmol/L (3.5-4.5); TOTAL PROTEIN 5.8 gm/dL (6.2-8.1)
[2021-09-26 02:00] VITALS: BP 120/72; PULSE 91
--- NOTE | 2021-09-26 02:00 | NUR ---
0115 - 18G PIV PLACED IN PATIENT'S LEFT WRIST; CBC, CMP, FIBRINOGEN DRAWN AND SENT TO LAB. 0120 - 16F PINA CATHETER PLACED USING STERILE TECHNIQUE. POSITIVE URINE RETURN. 0140 - PATIENT CONSENTS TO TRANSFER. 0157 - IVF LR, 2G AMPICILLIN, 4GMAGNESIUM SULFATE BOLUS STARTED PER PHYSICIAN ORDERS. 0210 - MAGNESIUM SULFATE BOLUS COMPLETE. MAINTENANCE MAGNESIUM SULFATE STARTED AT 2 G/HR. 0215 - REPORT CALLED TO ACCEPTING FACILTY. AMBULANCE TRANSPORT TEAM AT BEDSIDE 0225 - PATIENT TRANSFERRED OFF THE UNIT IN STRETCHER WITH TRANSPORT TEAM.
[2021-09-26 02:15] VITALS: BP 114/63; PULSE 90
[2021-09-26 02:17] VITALS: BP 121/71; PULSE 87; TEMP 98.1
== END 2021-09-26 02:25 ==
LOC: LDRO 22:00 → LDR 22:22 → LDRO 09-26 02:25
PROVIDERS: Obstetrics & Gynecology
DX: Z34.93 Encounter for supervision of normal pregnancy, unspecified, third trimester (principal); Z3A.29 29 weeks gestation of pregnancy
CPT/HCPCS: OP; J0290; J0702; J2550; J3475; J7120

== ENCOUNTER 2021-11-24 01:30 | Emergency (ER) | payer MEDICAID ==
[~2021-11-24] VITALS: Ht 170.2 cm; Wt 71.8 kg
[2021-11-24] MEDS ORDERED: NORCO 325 MG-51 TAB PO (01:58)
[2021-11-24] MEDS ORDERED: CLEOCIN HCL300 MG PO (01:58)
[2021-11-24 02:21] VITALS: BP 140/89; PULSE 84; TEMP 98.5
== END 2021-11-24 02:21 | disposition home or self-care (01) ==
LOC: COL.ER 01:30
DX: S02.5XXA Fracture of tooth (traumatic), initial encounter for closed fracture (principal); K04.7 Periapical abscess without sinus; Z28.310 Unvaccinated for COVID-19; Z91.040 Latex allergy status; Z88.5 Allergy status to narcotic agent; Z88.0 Allergy status to penicillin; X58.XXXA Exposure to other specified factors, initial encounter

== ENCOUNTER 2023-02-24 21:34 | Emergency (ER) | payer MEDICAID ==
[~2023-02-24] VITALS: Ht 170.2 cm; Wt 52.3 kg
[~2023-02-24 21:34] MED LIST changes: +BACTRIM DS 8001 TAB PO; +CLEOCIN HCL300 MG PO; +NORCO 325 MG-51 TAB PO; +OMNICEF 300MG300 MG PO
[2023-02-24 21:56] VITALS: BP 140/104; TEMP 98.6
[2023-02-24 23:00] VITALS: PULSE 81
== END 2023-02-24 23:11 | disposition home or self-care (01) ==
LOC: COL.ER 21:34
DX: S66.911A Strain of unspecified muscle, fascia and tendon at wrist and hand level, right hand, initial encounter (principal); S66.912A Strain of unspecified muscle, fascia and tendon at wrist and hand level, left hand, initial encounter; Z91.040 Latex allergy status; W18.30XA Fall on same level, unspecified, initial encounter; Y93.21 Activity, ice skating; Y92.330 Ice skating rink (indoor) (outdoor) as the place of occurrence of the external cause

== ENCOUNTER 2023-05-11 07:01 | Day surgery (SDC) | payer MEDICAID ==
[~2023-05-11] VITALS: Ht 170.2 cm; Wt 77.0 kg
[~2023-05-11 07:01] MED LIST changes: +SPRINTEC 35 MCG1 TAB PO
[2023-05-11 07:28] VITALS: BP 131/87; PULSE 74; TEMP 98.2
[2023-05-11 09:27] VITALS: BP 117/77; PULSE 69
--- NOTE | 2023-05-11 09:29 | NUR ---
Please see merge documentation for record of interventions, vitals and medications administered during loop removal and replacement
[2023-05-11] MEDS ORDERED: NS 100 ML IV.SOLN. IR SCH (09:54)
[2023-05-11] MEDS ORDERED: Vancomycin 1 GM VIAL IR SCH (09:55)
[2023-05-11] MEDS ORDERED: fentaNYL 50 MCG/ML 2 ML VIAL IV SCH (09:59)
[2023-05-11] MEDS ORDERED: Midazolam 2 MG/2 ML VIAL IV SCH (10:00)
[2023-05-11] MEDS ORDERED: Water For Inj, Sterile 10 ML VIAL IJ SCH (10:01)
[2023-05-11 10:30] VITALS: BP 126/83; PULSE 64
--- NOTE | 2023-05-11 10:35 | NUR ---
Pt was escorted back to express unit after loop removal and replacement. Pt is pwd with reg and unlabored respirations. Both incisions are covered with sterile gauze and paper tape, dressing is CDI. Pt care transferred to Hanna LEWIS at . Pt did have questions about her old bed side monitor, and about my care link [employer]. Curtis from [employer] was notified and stated with talk with pt while in express unit, to answer her questions.
[2023-05-11 10:45] VITALS: BP 105/77; PULSE 62
[2023-05-11] MEDS ORDERED: CLEOCIN HCL300 MG PO (10:57)
[2023-05-11 11:00] VITALS: BP 106/79; PULSE 60
[2023-05-11 11:15] VITALS: BP 108/78; PULSE 64
--- NOTE | 2023-05-11 11:55 | NUR ---
pt tolerated recovery period well. she was assisted to main lobby via wheelchair and was accompanied by boyfriend. pt vs remained within normal limits and she verbalized understanding of discharge instructions. pt free from acute concerns and complaints at time of discharge.
== END 2023-05-11 11:56 | disposition home or self-care (01) ==
LOC: COL.CAR 07:01
DX: Z45.09 Encounter for adjustment and management of other cardiac device (principal)
CPT/HCPCS: C1764; J2250; J3010; J3370

== ENCOUNTER 2023-05-22 19:29 | Emergency (ER) | payer MEDICAID ==
[~2023-05-22] VITALS: Ht 170.2 cm; Wt 75.0 kg
[2023-05-22 19:46] VITALS: TEMP 98.4
[2023-05-22 20:16] LABS: BASO # 0.1 K/mm3 (0.0-0.2); EOS # 0.1 K/mm3 (0.0-0.7); GRAN # 3.9 K/mm3 (1.4-6.5); GRAN % 49.9 % (42.2-75.2); HEMATOCRIT 41.3 % (37.0-47.0); HEMOGLOBIN 13.8 g/dl (12.5-16.0); LYMPH # 3.3 K/mm3 (1.2-3.4); LYMPH % 41.8 % (20.0-51.0); MEAN CELL VOLUME 86 fl (80.0-100.0); MEAN CORPUSCULAR HEMOGLOBIN 29 pg (27-31); MEAN CORPUSCULAR HGB CONC 33 g/dl (33.0-37.0); MEAN PLATELET VOLUME 10.4 fl (7.4-10.4); MONO # 0.5 K/mm3 (0.1-0.6); PLATELET COUNT 318 K/mm3 (130-400); RED BLOOD COUNT 4.82 M/mm3 (4.10-5.30)
[2023-05-22 20:34] LABS: ALBUMIN 3.9 g/dL (3.5-5.0); BILIRUBIN,TOTAL 0.3 mg/dL (0.2-1.2); CALCIUM 9.1 mg/dL (8.4-10.2); CREATININE, serum 0.66 mg/dL (0.57-1.11); POTASSIUM 3.7 mEq/L (3.5-4.5); TOTAL PROTEIN 7.1 g/dl (6.2-8.1)
[2023-05-22 20:40] LABS: TROPONIN-I 0.012 ng/mL (0.00-0.033)
[2023-05-22] MEDS ORDERED: NS 1,000 ML IV ONE (20:45)
[2023-05-22] MEDS ORDERED: Ondansetron 4 MG/2 ML VIAL IV ONE (20:45)
[2023-05-22 21:40] LABS: COLLECTION METHOD RANDOM VOIDED
[2023-05-22 21:46] LABS: PH 6.5 (5.0-8.5); URINE APPEARANCE CLEAR (CLEAR/HAZY); URINE BLOOD NEGATIVE (NEGATIVE); URINE COLOR YELLOW (YELLOW); URINE GLUCOSE NEGATIVE (NEGATIVE); URINE KETONE NEGATIVE (NEGATIVE); URINE NITRATE NEGATIVE (NEGATIVE); URINE PROTEIN(semi-quant) NEGATIVE (NEGATIVE); URINE UROBILINOGEN 0.2 E.U/dL (0.2-1.0)
[2023-05-22 21:56] LABS: TRICYCLIC ANTIDEPRESS URINE NEGATIVE (NEGATIVE)
[2023-05-22] MEDS ORDERED: NAPROSYN500 MG PO (22:07)
[2023-05-22] MEDS ORDERED: ZOFRAN ODT4 MG PO (22:07)
[2023-05-22 22:25] VITALS: BP 135/84; PULSE 69
[2023-05-22 22:55] LABS: MONOSCREEN NEGATIVE
== END 2023-05-22 22:25 | disposition home or self-care (01) ==
LOC: COL.ER 19:29
PROVIDERS: Emergency Medicine; Nurse Practitioner
DX: R55 Syncope and collapse (principal); R00.2 Palpitations; H53.8 Other visual disturbances; R11.0 Nausea; Z91.040 Latex allergy status
CPT/HCPCS: J2405; J7030

== ENCOUNTER 2023-06-04 21:29 | Emergency (ER) | payer MEDICAID ==
[~2023-06-04] VITALS: Ht 170.2 cm; Wt 74.5 kg
[~2023-06-04 21:29] MED LIST changes: +NAPROSYN500 MG PO
[2023-06-04 21:41] VITALS: TEMP 98.6
[2023-06-04 22:04] LABS: COLLECTION METHOD CLEAN CATCH
[2023-06-04 22:14] LABS: URINE APPEARANCE CLOUDY (CLEAR/HAZY); URINE BLOOD 2+ (NEGATIVE); URINE COLOR YELLOW (YELLOW); URINE GLUCOSE NEGATIVE (NEGATIVE); URINE KETONE TRACE (NEGATIVE); URINE NITRATE NEGATIVE (NEGATIVE); URINE PROTEIN(semi-quant) 1+ (NEGATIVE)
[2023-06-04] MEDS ORDERED: NS 1,000 ML IV ONE (22:15)
[2023-06-04] MEDS ORDERED: Morphine 4 MG/ML VIAL IV ONE (22:15)
[2023-06-04] MEDS ORDERED: Ondansetron 4 MG/2 ML VIAL IV ONE (22:15)
[2023-06-04 22:28] LABS: BASO # 0.1 K/mm3 (0.0-0.2); BASO % 0.7 % (0.0-2.0); EOS # 0.1 K/mm3 (0.0-0.7); EOS % 0.9 % (0.0-4.0); GRAN # 4.7 K/mm3 (1.4-6.5); GRAN % 53.3 % (42.2-75.2); HEMATOCRIT 40.4 % (37.0-47.0); HEMOGLOBIN 13.4 g/dl (12.5-16.0); LYMPH # 3.4 K/mm3 (1.2-3.4); LYMPH % 38.5 % (20.0-51.0); MEAN CELL VOLUME 86 fl (80.0-100.0); MEAN CORPUSCULAR HEMOGLOBIN 29 pg (27-31); MEAN CORPUSCULAR HGB CONC 33 g/dl (33.0-37.0); MONO # 0.6 K/mm3 (0.1-0.6); MONO % 6.5 % (1.7-9.3); PLATELET COUNT 305 K/mm3 (130-400); RED BLOOD COUNT 4.69 M/mm3 (4.10-5.30); REDCELL DISTRIBUTION WIDTH-CV 13.2 % (11.5-14.5)
[2023-06-04 22:45] LABS: BILIRUBIN,TOTAL 0.3 mg/dL (0.2-1.2); CALCIUM 9.1 mg/dL (8.4-10.2); CREATININE, serum 0.7 mg/dL (0.57-1.11); POTASSIUM 3.5 mEq/L (3.5-4.5); TOTAL PROTEIN 6.8 g/dl (6.2-8.1)
[2023-06-04] MEDS ORDERED: NS 100 ML IV SCH (22:49)
[2023-06-04] MEDS ORDERED: Iohexol 300 - 100 ML VIAL IV ONE (22:49)
[2023-06-04] MEDS ORDERED: NORCO 325 MG-51 TAB PO (23:40)
[2023-06-04] MEDS ORDERED: ZOFRAN ODT4 MG PO (23:40)
[2023-06-04] MEDS ORDERED: CIPRO 500MG TA500 MG PO (23:40)
[2023-06-04] MEDS ORDERED: droPERidol 2.5 MG/ML 2 ML VIAL IV ONE (23:45)
[2023-06-05 00:14] VITALS: BP 118/90; PULSE 72
== END 2023-06-05 00:20 | disposition home or self-care (01) ==
LOC: COL.ER 21:29
PROVIDERS: Personal Emergency Response Attendant
DX: N12 Tubulo-interstitial nephritis, not specified as acute or chronic (principal); N32.89 Other specified disorders of bladder; Z88.0 Allergy status to penicillin; Z88.1 Allergy status to other antibiotic agents; Z88.6 Allergy status to analgesic agent; Z91.040 Latex allergy status
CPT/HCPCS: J1790; J1956; J2270; J2405; J7030; Q9967

== ENCOUNTER → 2023-09-10 | Outpatient (CLI) | payer MEDICAID ==
[~2023-09-10] MED LIST changes: +CIPRO 500MG TA500 MG PO
== END ==
LOC: COL.RAD 07:51
DX: K29.00 Acute gastritis without bleeding (principal)
CPT/HCPCS: A9541-JZ

== ENCOUNTER 2023-09-17 15:40 | Emergency (ER) | payer MEDICAID ==
[~2023-09-17] VITALS: Ht 170.2 cm; Wt 65.9 kg
[2023-09-17 15:48] VITALS: TEMP 98.1
[2023-09-17] MEDS ORDERED: LORazepam 2 MG/ML 1 ML VIAL IM SCH (15:59)
[2023-09-17] MEDS ORDERED: Dicyclomine 10 MG/ML 2 ML VIAL IM ONE (16:30)
[2023-09-17 17:09] LABS: BASO # 0.1 K/mm3 (0.0-0.2); BASO % 0.7 % (0.0-2.0); EOS % 0.4 % (0.0-4.0); GRAN # 5.7 K/mm3 (1.4-6.5); GRAN % 68.9 % (42.2-75.2); HEMATOCRIT 41.1 % (37.0-47.0); HEMOGLOBIN 13.6 g/dl (12.5-16.0); LYMPH % 24.4 % (20.0-51.0); MEAN CELL VOLUME 87 fl (80.0-100.0); MEAN CORPUSCULAR HEMOGLOBIN 29 pg (27-31); MEAN CORPUSCULAR HGB CONC 33 g/dl (33.0-37.0); MEAN PLATELET VOLUME 10.5 fl (7.4-10.4); MONO # 0.4 K/mm3 (0.1-0.6); MONO % 5.4 % (1.7-9.3); PLATELET COUNT 254 K/mm3 (130-400); RED BLOOD COUNT 4.75 M/mm3 (4.10-5.30); REDCELL DISTRIBUTION WIDTH-CV 12.9 % (11.5-14.5)
[2023-09-17 17:34] LABS: COLLECTION METHOD CLEAN CATCH
[2023-09-17] MEDS ORDERED: Iohexol 300 - 100 ML VIAL IV ONE (17:34)
[2023-09-17] MEDS ORDERED: NS 100 ML IV SCH (17:35)
[2023-09-17 17:37] LABS: BILIRUBIN,TOTAL 0.4 mg/dL (0.2-1.2); CALCIUM 9.5 mg/dL (8.4-10.2); CREATININE, serum 0.75 mg/dL (0.57-1.11); POTASSIUM 3.2 mEq/L (3.5-4.5); TOTAL PROTEIN 6.8 g/dl (6.2-8.1)
[2023-09-17 17:42] LABS: PH 5.5 (5.0-8.5); URINE APPEARANCE CLEAR (CLEAR/HAZY); URINE BLOOD NEGATIVE (NEGATIVE); URINE COLOR YELLOW (YELLOW); URINE GLUCOSE NEGATIVE (NEGATIVE); URINE KETONE 1+ (NEGATIVE); URINE NITRATE NEGATIVE (NEGATIVE); URINE PROTEIN(semi-quant) TRACE (NEGATIVE)
[2023-09-17 17:57] LABS: TSH w REFLEX 0.538 uIU/mL (0.350-4.940)
[2023-09-17] MEDS ORDERED: NS 1,000 ML IV ONE (18:15)
[2023-09-17] MEDS ORDERED: Ondansetron 4 MG/2 ML VIAL IV ONE (19:30)
[2023-09-17] MEDS ORDERED: fentaNYL 50 MCG/ML 2 ML VIAL IV ONE (19:45)
[2023-09-17] MEDS ORDERED: BENTYL 20MG20 MG/TAB PO ×2 (20:32→20:37)
[2023-09-17 20:52] VITALS: BP 119/83; PULSE 97
== END 2023-09-17 20:47 | disposition home or self-care (01) ==
LOC: COL.ER 15:40
PROVIDERS: Family Medicine
DX: R10.9 Unspecified abdominal pain (principal); R11.2 Nausea with vomiting, unspecified; Z91.040 Latex allergy status; Z88.1 Allergy status to other antibiotic agents
CPT/HCPCS: J0500; J2060; J2405; J3010; J7030; Q9967

== ENCOUNTER 2023-10-08 13:30 | Inpatient (IN) | payer MEDICAID ==
[~2023-10-08] VITALS: Ht 170.2 cm; Wt 64.5 kg
[~2023-10-08 13:30] MED LIST changes: +BENTYL 20MG20 MG/TAB PO
[2023-10-24] VITALS (10 sets, daily range): BP systolic 110–133; BP diastolic 64–81; PULSE 52–81; TEMP 97–98.1
[2023-10-24] MEDS ORDERED: LR 1,000 ML IV SCH (05:00)
[2023-10-24] MEDS ORDERED: BUSPAR DIVIDOSE15 MG PO (13:13)
[2023-10-24] MEDS ORDERED: PEPCID 20MG TAB20 MG PO (13:14)
[2023-10-24] MEDS ORDERED: PHENERGAN 25 TA25 MG PO (13:15)
[2023-10-24] MEDS ORDERED: fentaNYL 50 MCG/ML 2 ML VIAL ONE ×2 (13:24→15:51)
[2023-10-24] MEDS ORDERED: Ondansetron 4 MG/2 ML VIAL ONE (13:24)
[2023-10-24] MEDS ORDERED: dexAMETHasone 10 MG/ML VIAL ONE (13:24)
[2023-10-24] MEDS ORDERED: Lidocaine PF 2% (20 MG/ML) 5 ML VIAL ONE (13:24)
[2023-10-24] MEDS ORDERED: Rocuronium 50 MG/5 ML Multi-Dose VIAL ONE (13:24)
[2023-10-24] MEDS ORDERED: Succinylcholine PF 200 MG/10 ML SYRINGE IV ONE (13:27)
[2023-10-24 13:32] LABS: BASO # 0.1 K/mm3 (0.0-0.2); BASO % 0.7 % (0.0-2.0); EOS # 0.1 K/mm3 (0.0-0.7); EOS % 0.9 % (0.0-4.0); GRAN # 5.4 K/mm3 (1.4-6.5); GRAN % 62.6 % (42.2-75.2); HEMATOCRIT 39.6 % (37.0-47.0); HEMOGLOBIN 13.1 g/dl (12.5-16.0); LYMPH # 2.6 K/mm3 (1.2-3.4); MEAN CELL VOLUME 88 fl (80.0-100.0); MEAN CORPUSCULAR HEMOGLOBIN 29 pg (27-31); MEAN CORPUSCULAR HGB CONC 33 g/dl (33.0-37.0); MEAN PLATELET VOLUME 10.2 fl (7.4-10.4); MONO # 0.5 K/mm3 (0.1-0.6); MONO % 5.7 % (1.7-9.3); PLATELET COUNT 293 K/mm3 (130-400); RED BLOOD COUNT 4.51 M/mm3 (4.10-5.30)
[2023-10-24 13:50] LABS: ALBUMIN 3.9 g/dL (3.5-5.0); BILIRUBIN,TOTAL 0.6 mg/dL (0.2-1.2); CALCIUM 9.3 mg/dL (8.4-10.2); CREATININE, serum 0.66 mg/dL (0.57-1.11); POTASSIUM 3.7 mEq/L (3.5-4.5); TOTAL PROTEIN 6.7 g/dl (6.2-8.1)
[2023-10-24 14:47] LABS: MAGNESIUM 1.7 mg/dL (1.6-2.6); PHOSPHOROUS 3.6 mg/dL (2.3-4.7)
[2023-10-24] MEDS ORDERED: Topical Skin Adhesive 1 EACH (1 ML) TOP ONE (14:55)
[2023-10-24] MEDS ORDERED: Ketorolac 30 MG/ML VIAL ONE (15:51)
[2023-10-24] MEDS ORDERED: Ondansetron 4 MG/2 ML VIAL IV PRN ×2 (16:00→16:15)
[2023-10-24] MEDS ORDERED: HYDROmorphone 0.5 MG/0.5 ML SYRINGE IV PRN (16:00)
[2023-10-24] MEDS ORDERED: Naloxone 0.4 MG/ML VIAL IV PRN (16:00)
[2023-10-24] MEDS ORDERED: D5NS & 20 mEq KCl 1,000 ML IV SCH (16:00)
[2023-10-24] MEDS ORDERED: hydrALAZINE 20 MG/ML 1 ML VIAL IV PRN (16:15)
[2023-10-24] MEDS ORDERED: HYDROmorphone 1 MG/1 ML SYRINGE [PACU/SDC ONLY] IV PRN (16:15)
[2023-10-24] MEDS ORDERED: fentaNYL 50 MCG/ML 1 ML SYRINGE/VIAL [PACU/SDC ONLY] IV PRN (16:15)
--- NOTE | 2023-10-24 17:25 | NUR ---
PATIENT ARRIVED TO FLOOR AT 1700. VSS. G/J TUBE IN PLACE AND HOOKED TO PINA BAG FOR DECOMPRESSION. 3 LAB SITE CDI W/SURG GLUE. PATIENT REPORTING PAIN 8/10 IN PACU AND 4/10 WHEN SHE GOT TO FLOOR. PATIENT HAS NO REQUEST AT THIS TIME. BOYFRIEND AT BEDSIDE. CALL LIGHT IN REACH
--- NOTE | 2023-10-24 18:24 | NUR ---
PATIENT CALLED REPORT PAIN 7/10 WITH MOVMENT AND 5/10 WHEN RESTING AND STILL, PAIN MEDS GIVEN ORDERED.
[2023-10-24] MEDS ORDERED: Morphine 4 MG/ML VIAL IV PRN (19:45)
[2023-10-24] MEDS ORDERED: Pantoprazole 40 MG in NS 10 ML IV SCH (21:00)
--- NOTE | 2023-10-24 23:51 | NUR ---
patient lying in bed, alert and oriented x4. reports feeling "pressure like heavy weight on chest and short of breath", heaviness in chest rated 7/10, pt reporting cardiac history present. 1935- COLEMAN Sue notified of chest heaviness and short of breath, vitals stable, new orders placed and results relayed to Vikram per request. upon reassessment after given morphine, discomfort rated 3/10. pt ambulated to bathroom x2 with assist. GJ tube in place draining pale cloudy fluid. pt reporting nausea, per request zofran given and ain rating 6/10, dilaudid given. upon reassessment pain rated 4/10 "worse with movement" in ABD, denies nausea and chest pressure at this time. lap sites x4 and GJ tube with gauze all CDI. IV in Rh is patent, site CDI. call light within reach, pt has no further needs, questions or concerns at this time.
[2023-10-25] VITALS (13 sets, daily range): BP systolic 107–123; BP diastolic 68–747; PULSE 61–79; TEMP 97.8–98.7
[2023-10-25] MEDS ORDERED: D5NS & 20 mEq KCl 1,000 ML IV SCH (04:00)
[2023-10-25 05:33] LABS: BASO % 0.2 % (0.0-2.0); EOS # 0.1 K/mm3 (0.0-0.7); EOS % 0.5 % (0.0-4.0); GRAN # 12.5 K/mm3 (1.4-6.5); GRAN % 84.9 % (42.2-75.2); LYMPH # 1.5 K/mm3 (1.2-3.4); LYMPH % 10.2 % (20.0-51.0); MEAN CELL VOLUME 87 fl (80.0-100.0); MEAN CORPUSCULAR HEMOGLOBIN 30 pg (27-31); MEAN CORPUSCULAR HGB CONC 34 g/dl (33.0-37.0); MEAN PLATELET VOLUME 10.2 fl (7.4-10.4); MONO # 0.6 K/mm3 (0.1-0.6); MONO % 3.9 % (1.7-9.3); PLATELET COUNT 277 K/mm3 (130-400); RED BLOOD COUNT 4.06 M/mm3 (4.10-5.30); REDCELL DISTRIBUTION WIDTH-CV 13.8 % (11.5-14.5)
[2023-10-25 05:35] LABS: HEMATOCRIT 35.5 % (37.0-47.0)
[2023-10-25 05:53] LABS: ALBUMIN 3.3 g/dL (3.5-5.0); BILIRUBIN,TOTAL 0.6 mg/dL (0.2-1.2); CALCIUM 8.7 mg/dL (8.4-10.2); CREATININE, serum 0.59 mg/dL (0.57-1.11); MAGNESIUM 1.7 mg/dL (1.6-2.6); POTASSIUM 4.5 mEq/L (3.5-4.5); TOTAL PROTEIN 5.8 g/dl (6.2-8.1)
--- NOTE | 2023-10-25 08:00 | NUR ---
SHIFT ASSESSMENT COMPLETE. VSS. PATIENT RESTING IN BED W/BOYFRIEND AT BEDSIDE. PATIENT IND. IN ROOM. PATIENT STATES PAIN 8/10 PAIN MEDS GIVEN PER ORDERS. PATIENT STATES SHE PULLED ON THE TUBE BY MISTAKE IN MIDDLE OF THE NIGHT AND SINCE ABD HAS BEEN VERY PAINFUL, ADDED AN ABD BINDER TO HELP PATIENT FROM PULLING ON THE G/J TUBE. ALL MORNING MEDS GIVEN ORDERED. CALL LIGHT IN REACH
[2023-10-25] MEDS ORDERED: Ondansetron 4 MG/2 ML VIAL IV SCH (09:00)
--- NOTE | 2023-10-25 09:19 | NUR ---
conveyor worker met with pt and her , Chaparro [phone] to discuss discharge planning. She reports to live alone in [place]. She sees Dr. Reyna for PCP needs and obtains medications from [facility] with no difficulties. She confirmed her insurance as Medicaid. She reports to be independent with ADLS and uses hearing aides and now a J Tube for DME. She does not have a DPOA-HC and is agreeable to her being NOK. SW discussed if she feels comfortable managing the J Tube. She reports Family Resource Coordinator Lisha met with her yesterday and intends to come by today. SW offered home health and pt declined reporting that she can manage as her son had a feeding tube before. She informs she is agreeable to the feeding supplies being ordered to [facility] and would prefer it brought to her room, but she can pick it up. Discharge Plan: home
[2023-10-25] MEDS ORDERED: LR 1,000 ML IV SCH (10:30)
[2023-10-25] MEDS ORDERED: D5W 1,000 ML IV SCH (10:30)
[2023-10-25] MEDS ORDERED: *Potassium Replacement Protocol MC SCH (10:45)
--- NOTE | 2023-10-25 11:41 | NUR ---
D: Underwater Hunter stopped by room on rounds. A: Pt was resting and content. Pt has no needs right now. P: Underwater Hunter informed pt that if she needed anything from the pharmaceutical analyst area to let her nurse know. Underwater Hunter will follow up as needed.
[2023-10-25] MEDS ORDERED: Insulin Lispro (HumaLOG) SQ SCH ×2 (12:00→18:00)
[2023-10-25] MEDS ORDERED: Nitrofurantoin (Mono/Macro) 100 MG CAP PO SCH (12:23)
[2023-10-25] MEDS ORDERED: Ketorolac 30 MG/ML VIAL IV ONE (13:45)
--- NOTE | 2023-10-25 13:51 | NUR ---
PATIENT CALLED REQUESTING THE NURSE, THIS NURSE CHECKED ON PATIENT AND PATIENT IS IN TEARS STATING SHE IS HAVING A STABBING SHARP PAIN AROUND HER G/J TUBE. PAIN MEDS GIVEN PER ORDERS AND CONTACTED DR. TSANG WHO GAVE ORDER FOR MORE PAIN MEDS IV AND TO CONTINUE TO MONITOR. ORDERS PLACED AND MEDS GIVEN. WILL CONTINUE TO MONITOR.
--- NOTE | 2023-10-25 16:09 | NUR ---
structural steel worker was notified patient will need formula and J tube supplies and would like them ordered through [facility]. SW secure emailed order and necessary information to [facility] [place]. Discharge plan: Home
--- NOTE | 2023-10-25 17:23 | NUR ---
G TUBE CLAMPED AND FEEDING STARTED AT 1600.
[2023-10-26] VITALS (10 sets, daily range): BP systolic 101–123; BP diastolic 67–82; PULSE 67–81; TEMP 97.7–98.6
--- NOTE | 2023-10-26 00:01 | NUR ---
patient rosy gunn bed, alert and oriented x4. denies chest pain and shortness of breath. reports baseline nausea, per pt request for additional request 2350- COLEMAN Sue notified new orders placed. G/J tube in place with continuous tube feedings running, draining tube clamped at this time. Lap sites x4, CDI. PO meds given with 30ml flush before and after. ambulating with steady gait. call light within reach. pt has no further needs, questions or concerns at this time.
[2023-10-26 05:48] LABS: BASO # 0.1 K/mm3 (0.0-0.2); BASO % 0.6 % (0.0-2.0); EOS % 0.4 % (0.0-4.0); GRAN # 5.1 K/mm3 (1.4-6.5); GRAN % 64.6 % (42.2-75.2); HEMOGLOBIN 11.6 g/dl (12.5-16.0); LYMPH # 2.1 K/mm3 (1.2-3.4); LYMPH % 26.2 % (20.0-51.0); MEAN CELL VOLUME 88 fl (80.0-100.0); MEAN CORPUSCULAR HEMOGLOBIN 29 pg (27-31); MEAN CORPUSCULAR HGB CONC 33 g/dl (33.0-37.0); MEAN PLATELET VOLUME 10.2 fl (7.4-10.4); MONO # 0.6 K/mm3 (0.1-0.6); MONO % 7.9 % (1.7-9.3); PLATELET COUNT 250 K/mm3 (130-400)
[2023-10-26 06:09] LABS: CALCIUM 8.6 mg/dL (8.4-10.2); CREATININE, serum 0.62 mg/dL (0.57-1.11); POTASSIUM 3.5 mEq/L (3.5-4.5)
[2023-10-26] MEDS ORDERED: Dextrose (Glucose) 15 GM (4 x 3.75 GM) Chewable TABLET PACK PO PRN (07:15)
[2023-10-26] MEDS ORDERED: Glucagon 1 MG VIAL IM PRN (07:15)
[2023-10-26] MEDS ORDERED: Dextrose 50% Water 25 GM/50 ML SYRINGE IV PRN (07:15)
--- NOTE | 2023-10-26 07:45 | NUR ---
SHIFT ASSESSMENT COMPLETE. VSS. PATIENT RESTING IN BED W/ AT BEDSIDE. PATIENT REPORTING PAIN 4-5/10 PAIN MEDS GIVEN BY NIGHT NURSE ORDERED, ADVISED PATIENT THAT PAIN MEDS ARE Q4 HRS. PATIENT EXPRESSED UNDERSTANDING. G/J TUBE IN PLACE AND CLAMPED. TUBE FEEDINGS INCREASED FROM 10ML/HR TO 20ML/HR PATIENT TOLERATING WELL AT THIS TIME. ALL MORNING MEDS GIVEN ORDERED. PATIENT HAS NO OTHER NEEDS AT THIS TIME. CALL LIGHT IN REACH
[2023-10-26] MEDS ORDERED: LORazepam 0.5 MG TAB PO PRN (09:00)
[2023-10-26] MEDS ORDERED: Scopolamine 1 MG Delivered 3-Day PATCH TD PRN (09:00)
[2023-10-26] MEDS ORDERED: CEPHALEXIN500 M1 PO (09:04)
[2023-10-26] MEDS ORDERED: ULTRAM 50MG TAB50 MG PO (09:05)
[2023-10-26] MEDS ORDERED: PERCOCET 325 MG1 TA2 PO (09:06)
--- NOTE | 2023-10-26 12:43 | NUR ---
out of school hours care worker was notified by the force variation equipment tender about patient discharging today. SW explained patient would need formula as the home medical store does not have that formula in stock. SW was notified patient's orders were incorrect and she has not been cleared for discharge yet. SW notified [facility] and force variation equipment tender patient is not ready for discharge at this time. KOLTON will follow up and notify [facility] when patient is ready for discharge to have them deliver the needed equipment for her feeding tube. Discharge plan: Home
--- NOTE | 2023-10-26 16:16 | NUR ---
Flyer Maker met with patient to review discharge plan. KOLTON assured patient that KOLTON Cheung placed order and that supplies would be delivered at time of discharge. Patient requested 500 ML bags and SW contacted [facility] with that request and they stated they have those bags available. Patient requested to speak with Dietitian, however she has left for the day. SW left a message for weekend Dietitan to follow up.
--- NOTE | 2023-10-26 20:40 | NUR ---
Patient resting in bed with at bedside. Rates pain at 6/10, prn pain meds given. Pain in RUQ upon palpation. Patient states she is nauseated, prn zofran given. Needs met. GJ tube feeding running at 20mL/hr without complications. Assessment complete. IV in right hand infusing with patient complaints of burning when flushing. Call ligth and personal items in reach. Bed in low position.
[2023-10-27] VITALS (13 sets, daily range): BP systolic 99–124; BP diastolic 64–87; PULSE 54–66; TEMP 97.5–98.4
[2023-10-27] MEDS ORDERED: Melatonin 3 MG TAB PO SCH (01:15)
--- NOTE | 2023-10-27 06:00 | NUR ---
Patient resting in bed. Rates pain at 7/10, prn pain meds given. Denies any needs at this time. Feeding order clarified overnight. Patient unable to recieve tube feeding due to being unable to find the [employer] Standard 1.4. Hospitalist was made aware, will restart feedings when feeding is found. IV in right hand infiltrated overnight, new IV started in right wrist infusing without complicaitons. Call light and personal items in reach. Bed in low position with at bedside.
[2023-10-27 06:28] LABS: BASO # 0.1 K/mm3 (0.0-0.2); EOS # 0.1 K/mm3 (0.0-0.7); GRAN # 3.1 K/mm3 (1.4-6.5); GRAN % 50.5 % (42.2-75.2); HEMOGLOBIN 11.4 g/dl (12.5-16.0); LYMPH # 2.3 K/mm3 (1.2-3.4); LYMPH % 38.3 % (20.0-51.0); MEAN CELL VOLUME 88 fl (80.0-100.0); MEAN CORPUSCULAR HEMOGLOBIN 29 pg (27-31); MEAN CORPUSCULAR HGB CONC 33 g/dl (33.0-37.0); MEAN PLATELET VOLUME 10.1 fl (7.4-10.4); MONO # 0.5 K/mm3 (0.1-0.6); PLATELET COUNT 245 K/mm3 (130-400); RED BLOOD COUNT 3.94 M/mm3 (4.10-5.30); REDCELL DISTRIBUTION WIDTH-CV 13.8 % (11.5-14.5)
[2023-10-27 06:30] LABS: HEMATOCRIT 34.7 % (37.0-47.0)
[2023-10-27 07:05] LABS: CALCIUM 8.9 mg/dL (8.4-10.2); CREATININE, serum 0.63 mg/dL (0.57-1.11); POTASSIUM 3.7 mEq/L (3.5-4.5)
--- NOTE | 2023-10-27 09:30 | NUR ---
SHIFT ASSESSMENT COMPLETE.VSS. PATIENT RESTING IN BED W/ AT BEDSIDE. ALL MORNING MEDS GIVEN PER ORDERS. PATIENT STATES PAIN 6/10 PAIN MEDS GIVEN PER ORDERS. TUBE FEEDING DELAYED TODAY DUE TO NOT HAVING THE FEEDING FORMULA AVAIL. AND WAITING ON DIETARY FOR INSTRUCTIONS DUE TO PATIENT FEELING DISTENDED FROM FEEDING DAY BEFORE. IV TO RIGHT WRIST INFUSING D5 AT 100ML/HR. PATIENT DIET CHANGED FROM NPO TO FULL LIQUID ADVISED PATIENT SHE MAY ORDER FROM [employer] FOR [employer]AK[employer]ST IF SHE FEELS UP TO IT, PATIENT EXPRESSED UNDERSTANDING. PATIENT HAS NO OTHER REQUEST AT THIS TIME. CALL LIGHT IN REACH
--- NOTE | 2023-10-27 13:06 | NUR ---
SW was informed by patient's nurse that she had requested to visit with SW about home medical supplies. Patient at this time is still pending discharge. KOLTON met with patient and she requested for supplies to be sent today, as she was concern that she would not have supplies with possible closure of agency on Sunday and (Sunday). KOLTON informed patient that has not been her experience in the past with [facility] home medical but would contact the agency and confirm. SW contacted [facility] medical and spoke with supervisor shuttle preparation sales representative raw fibers and was informed that they do not close for weekend or holidays. That order was ready at discharge minus the food and he was informed that hosptial dietitian staff was aware and would be sending patient home with one week supply until they receive their supply to deliver to patient. SW revisited with patient on updates, and she was also tracking that dietitian would be providing supply to go home. SW encouraged patient to reach out if she had any further questions/concerns.
--- NOTE | 2023-10-27 16:43 | NUR ---
PATIENT CALLED STATING SHE FEELS NAUSOUS AND ABD FEELS DISTENDED SO SHE UNCLAMPED HER TUBE. THIS NURSE ASSESSED PATIENT'S ABD ABD SOFT SLIGHTLY DISTENDED. CONTACTE DR. TSANG ADVISED TO KEEP CLAMPED TILL PATIENT FEELS BETTER AND THEN UNCLAMP AND OK TO GO BACK AND BOTH IF NEEDED FOR PATIENT COMFORT.
[2023-10-27] MEDS ORDERED: Polyethylene Glycol 3350 17 GM PDS PO PRN (17:00)
--- NOTE | 2023-10-27 19:30 | NUR ---
Patient resting in bed with and kids at bedside. Denies any pain at this time. Needs met. Assessment complete. IV in right wrist flushes easily without complications. GJ tube to continous feeding at 10mL/hr. Call light and personal items in reach. Bed in low position.
[2023-10-27] MEDS ORDERED: Melatonin 3 MG TAB PO PRN (21:06)
[2023-10-28] VITALS (7 sets, daily range): BP systolic 101–116; BP diastolic 64–71; PULSE 50–56; TEMP 97.5–98.3
--- NOTE | 2023-10-28 06:27 | NUR ---
Patient resting in bed. No changes over night. Continuous feeding running at 10mL/hr. Patient tolerting well.
--- NOTE | 2023-10-28 10:03 | NUR ---
SHIFT ASSESSMENT COMPLETE. VSS. PATIENT AWAKE IN BED WATCHING TV W/ AT BEDSIDE. PER PATIENT FEELING WELL THIS AM REPORTS NO BLOATING AND PAIN MINIMAL 2/10. ALL MORNING MEDS GIVEN ORDERED. FEEDING STARTED AT 20ML THIS AM. IND. IN ROOM PER PATIENT NO BM YET. PATIENT HAS NO NEEDS AT THIS TIME. CALL LIGHT IN REACH
--- NOTE | 2023-10-28 10:22 | NUR ---
preparation room worker was informed pt is a likely discharge for today. KOLTON notes Hogshead Wrecker Denise arrive and provided a case of [employer] formula for pt. KOLTON called [facility] and they state they can deliver the pump, supplies, pole today or upon discharge-- pending time. He reports that either Sunday or Sunday pt's formula should arrive to them. RN informed of the above. KOLTON received a call from [facility] confirming the above plan. She reports to have provided education to pt and their number if pt needs more formula. Discharge Plan: home
[2023-10-28] MEDS ORDERED: NORCO 325 MG-51 TAB PO (13:10)
--- NOTE | 2023-10-28 13:11 | NUR ---
KOLTON notified by DEBBIE Delong that patient has discharge orders. KOLTON called [facility] to alert of patient's discharge today. Coleman with [facility] stated he has all paperwork needed and will deliver equipment and supplies to patient's home today. No additional needs identified at this time.
== END 2023-10-28 13:59 | disposition home or self-care (01) | DRG 391 ==
LOC: SURG 10-24 11:58 → INPTSU 10-24 11:58 → SURG 10-24 14:30
PROVIDERS: Internal Medicine; ADMIT Surgery
PROC: 0DHA8UZ Insertion of Feeding Device into Jejunum, Via Natural or Artificial Opening Endoscopic (ICD-10-PCS; principal; 2023-10-24 14:30)
DX: K31.84 Gastroparesis (principal); E43 Unspecified severe protein-calorie malnutrition; K21.9 Gastro-esophageal reflux disease without esophagitis; E73.9 Lactose intolerance, unspecified; F41.0 Panic disorder [episodic paroxysmal anxiety]; F41.9 Anxiety disorder, unspecified; Z95.818 Presence of other cardiac implants and grafts; Z87.891 Personal history of nicotine dependence; Z88.0 Allergy status to penicillin; Z88.5 Allergy status to narcotic agent; Z88.8 Allergy status to other drugs, medicaments and biological substances
CPT/HCPCS: J0690; J0780; J1100; J1170; J1885; J2270; J2405; J2470; J2704; J3010; J3480; J7070; J7120

== ENCOUNTER 2023-10-09 22:19 | Emergency (ER) | payer MEDICAID ==
[~2023-10-09] VITALS: Ht 170.2 cm; Wt 63.2 kg
[2023-10-09 22:31] VITALS: TEMP 98.4
[2023-10-09] MEDS ORDERED: Morphine 4 MG/ML VIAL IV ONE (23:00)
[2023-10-09] MEDS ORDERED: Ondansetron 4 MG/2 ML VIAL IV ONE (23:00)
[2023-10-09] MEDS ORDERED: NS 1,000 ML IV ONE (23:00)
[2023-10-09 23:02] LABS: BASO # 0.1 K/mm3 (0.0-0.2); BASO % 0.9 % (0.0-2.0); EOS # 0.1 K/mm3 (0.0-0.7); EOS % 1.3 % (0.0-4.0); GRAN # 3.2 K/mm3 (1.4-6.5); GRAN % 46.4 % (42.2-75.2); HEMATOCRIT 40.1 % (37.0-47.0); HEMOGLOBIN 13.7 g/dl (12.5-16.0); LYMPH # 3.1 K/mm3 (1.2-3.4); LYMPH % 45.7 % (20.0-51.0); MEAN CELL VOLUME 86 fl (80.0-100.0); MEAN CORPUSCULAR HEMOGLOBIN 29 pg (27-31); MEAN CORPUSCULAR HGB CONC 34 g/dl (33.0-37.0); MEAN PLATELET VOLUME 10.5 fl (7.4-10.4); MONO # 0.4 K/mm3 (0.1-0.6); MONO % 5.6 % (1.7-9.3); PLATELET COUNT 261 K/mm3 (130-400); RED BLOOD COUNT 4.69 M/mm3 (4.10-5.30); REDCELL DISTRIBUTION WIDTH-CV 13.5 % (11.5-14.5)
[2023-10-09 23:13] LABS: COLLECTION METHOD CLEAN CATCH
[2023-10-09 23:18] LABS: URINE APPEARANCE CLEAR (CLEAR/HAZY); URINE BLOOD NEGATIVE (NEGATIVE); URINE COLOR YELLOW (YELLOW); URINE GLUCOSE NEGATIVE (NEGATIVE); URINE KETONE NEGATIVE (NEGATIVE); URINE NITRATE NEGATIVE (NEGATIVE); URINE PROTEIN(semi-quant) NEGATIVE (NEGATIVE); URINE UROBILINOGEN 0.2 E.U/dL (0.2-1.0)
[2023-10-09 23:29] LABS: ALBUMIN 4.1 g/dL (3.5-5.0); BILIRUBIN,TOTAL 0.3 mg/dL (0.2-1.2); CALCIUM 9.5 mg/dL (8.4-10.2); CREATININE, serum 0.67 mg/dL (0.57-1.11); POTASSIUM 3.6 mEq/L (3.5-4.5); TOTAL PROTEIN 6.4 g/dl (6.2-8.1)
[2023-10-09] MEDS ORDERED: Iohexol 300 - 100 ML VIAL IV ONE (23:45)
[2023-10-09] MEDS ORDERED: NS 50 ML IV SCH (23:46)
[2023-10-10] MEDS ORDERED: Promethazine 50 MG/ML 1 ML VIAL IM ONE (00:45)
[2023-10-10 02:24] VITALS: BP 129/95; PULSE 73
== END 2023-10-10 02:24 | disposition home or self-care (01) ==
LOC: COL.ER 22:19
PROVIDERS: Emergency Medicine
DX: K31.84 Gastroparesis (principal); Z91.040 Latex allergy status
CPT/HCPCS: J2270; J2405; J2550; J7030; Q9967

== ENCOUNTER 2023-10-15 21:30 | Emergency (ER) | payer MEDICAID ==
[~2023-10-15] VITALS: Ht 170.2 cm; Wt 63.2 kg
[2023-10-15 21:36] VITALS: TEMP 97.5
[2023-10-15] MEDS ORDERED: NS 1,000 ML IV ONE (21:45)
[2023-10-15] MEDS ORDERED: Ondansetron 4 MG/2 ML VIAL IV ONE (21:45)
[2023-10-15 21:50] LABS: BASO # 0.1 K/mm3 (0.0-0.2); BASO % 0.9 % (0.0-2.0); EOS % 0.4 % (0.0-4.0); GRAN # 4.1 K/mm3 (1.4-6.5); GRAN % 58.5 % (42.2-75.2); HEMATOCRIT 40.7 % (37.0-47.0); HEMOGLOBIN 13.8 g/dl (12.5-16.0); LYMPH # 2.5 K/mm3 (1.2-3.4); LYMPH % 34.8 % (20.0-51.0); MEAN CELL VOLUME 86 fl (80.0-100.0); MEAN CORPUSCULAR HEMOGLOBIN 29 pg (27-31); MEAN CORPUSCULAR HGB CONC 34 g/dl (33.0-37.0); MEAN PLATELET VOLUME 10.6 fl (7.4-10.4); MONO # 0.4 K/mm3 (0.1-0.6); MONO % 5.1 % (1.7-9.3); PLATELET COUNT 264 K/mm3 (130-400); RED BLOOD COUNT 4.74 M/mm3 (4.10-5.30); REDCELL DISTRIBUTION WIDTH-CV 13.5 % (11.5-14.5)
[2023-10-15 22:04] LABS: COLLECTION METHOD CLEAN CATCH
[2023-10-15 22:07] LABS: ALBUMIN 4.3 g/dL (3.5-5.0); BILIRUBIN,TOTAL 0.6 mg/dL (0.2-1.2); CALCIUM 9.3 mg/dL (8.4-10.2); CREATININE, serum 0.68 mg/dL (0.57-1.11); POTASSIUM 3.4 mEq/L (3.5-4.5)
[2023-10-15 22:12] LABS: URINE APPEARANCE CLEAR (CLEAR/HAZY); URINE BLOOD NEGATIVE (NEGATIVE); URINE COLOR YELLOW (YELLOW); URINE GLUCOSE NEGATIVE (NEGATIVE); URINE KETONE 3+ (NEGATIVE); URINE NITRATE NEGATIVE (NEGATIVE); URINE PROTEIN(semi-quant) 1+ (NEGATIVE)
[2023-10-15] MEDS ORDERED: diphenhydrAMINE 50 MG/ML 1 ML VIAL IV ONE (22:45)
[2023-10-15] MEDS ORDERED: Ketorolac 15 MG/ML VIAL IV ONE (23:45)
[2023-10-16 03:12] VITALS: BP 124/70; PULSE 64
== END 2023-10-16 03:12 | disposition home or self-care (01) ==
LOC: COL.ER 21:30
PROVIDERS: Emergency Medicine
DX: K31.84 Gastroparesis (principal); Z91.040 Latex allergy status
CPT/HCPCS: J1200; J1885; J2405; J7030

== ENCOUNTER 2023-11-06 23:11 | Emergency (ER) | payer MEDICAID ==
[~2023-11-06] VITALS: Ht 170.2 cm; Wt 62.7 kg
[~2023-11-06 23:11] MED LIST changes: +BUSPAR DIVIDOSE15 MG PO; +CEPHALEXIN500 M1 PO; +PEPCID 20MG TAB20 MG PO; +PERCOCET 325 MG1 TA2 PO; +PHENERGAN 25 TA25 MG PO; +ULTRAM 50MG TAB50 MG PO
[2023-11-06 23:22] VITALS: TEMP 98
[2023-11-06] MEDS ORDERED: Promethazine 50 MG/ML 1 ML VIAL IM ONE (23:45)
[2023-11-06] MEDS ORDERED: NS 1,000 ML IV ONE (23:45)
[2023-11-07] MEDS ORDERED: PHENERGAN12.5 MG/SU RC (00:49)
[2023-11-07 01:10] VITALS: BP 128/86; PULSE 62
== END 2023-11-07 01:10 | disposition home or self-care (01) ==
LOC: COL.ER 23:11
DX: R11.2 Nausea with vomiting, unspecified (principal); Z91.040 Latex allergy status
CPT/HCPCS: J2550; J7030